=== PATIENT | male | born 1970 | race Caucasian/White ===

== ENCOUNTER 2016-06-16 07:13 | Day surgery (SDC) | payer BC ==
[2016-06-13 09:16] VITALS: BMI 28.4
[~2016-06-16 07:13] MED LIST: BUPIVACAINE HCL/PF 0.5% (5MG/ML) 10 ML VIAL IJ ONE; LIDOCAINE HCL 1%, 10 MG/ML (20ML VIAL) IJ ONE
[2016-06-16] MEDS ORDERED: ceFAZolin SODIUM 1 GM VIAL IVPB ONE (08:48)
[2016-06-16] MEDS ORDERED: ONDANSETRON 4 MG/2 ML VIAL IVPUSH PRN (09:09)
[2016-06-16] MEDS ORDERED: oxyCODONE HCL 5 MG TABLET PO PRN (09:09)
[2016-06-16] MEDS ORDERED: LACTATED RINGERS SOLUTION 1,000 ML IV SCH (09:15)
[2016-06-16] MEDS ORDERED: LIDOCAINE HCL 1%, 10 MG/ML (20ML VIAL) IJ ONE (10:10)
[2016-06-16] MEDS ORDERED: BUPIVACAINE HCL/PF 0.5% (5MG/ML) 10 ML VIAL IJ ONE (10:10)
[2016-06-16] MEDS ORDERED: BENZOIN/ALOE VERA/STORAX/TOLU 58 ML BOTTLE ONE (10:18)
--- NOTE | 2016-06-16 10:37 | OP ---
Operative Note - Note: Operative Date: 06/16/16 Pre-Operative Diagnosis: Left groin mass Operation: Excision of left groin mass Findings: Left groin mass Post-Operative Diagnosis: Same as Pre-op Surgeon: Philip Cornejo katie) Content Development Specialist: Agapito Garcia Anesthesia: Local, MAC Specimens Removed: Left groin mass Estimated Blood Loss (mls): 10 Operative Report Dictated: Yes
[2016-06-16 11:31] VITALS: BP 112/61; PULSE 73; TEMP 97.7
--- NOTE | 2016-06-16 12:39 | OP ---
DATE OF OPERATION: 06/16/2016 SURGEON: Fabián Cornejo MD CO-SURGEON: Agapito Garcia DO DOORKEEPER: KARUNA Phipps PREOPERATIVE DIAGNOSIS: Left groin mass. POSTOPERATIVE DIAGNOSIS: Left groin mass. PROCEDURE: Excision of left groin mass. SPECIMEN: Left groin mass. ESTIMATED BLOOD LOSS: 10 mL. DRAINS: None. ANESTHESIA: MAC/local. REASON FOR PROCEDURE: This is a 46-year-old gentleman who presented to the office for evaluation of a left groin mass. It had caused him some discomfort, and it had increased in size. Because of this, he was consented for an excision of left groin mass. The risks and benefits of the procedure were explained. These included bleeding, infection, recurrence, injury to surrounding structures including vessel injury, nerve injury, delayed wound healing, which in his case would be increased because of history of smoking and diabetes, UT, DVT, PE. He understood and signed for consent. DESCRIPTION OF PROCEDURE: The patient was placed on the operating room table. He underwent MAC by Anesthesia. The left groin was prepped and draped in the usual sterile fashion. A time-out was performed. A vertical incision was made over the area of the left groin mass. The area was dissected down to the level of the mass. The mass was fully dissected and excised. This was done along with Dr. Garcia. No evidence of vascular involvement was noted. The mass was sent off the field as specimen. Copious irrigation and suction was performed until clear hemostasis was achieved with electrocautery and Surgicel dressing, which was removed at the end. The deep tissues were closed using 2-0 Vicryl suture as well as 3-0 Vicryl suture. The skin was closed using 4-0 Biosyn suture. Sterile dressings were applied. The patient tolerated the procedure well and was transferred to the recovery room in stable condition. FABIÁN CORNEJO M.D. ELLE/[id number] MTDD
--- NOTE | 2016-06-17 12:59 | PATH ---
Surgical Pathology Report Patient Name: KELY CISSE [facility]. Rec. #: [id number] /Age/Gender: 1970 (Age: 46) / M Account: [id number] Location: [facility] Taken: 06/16/2016 Received: 06/16/2016 Reported: 06/17/2016 Physicians: Philip Cornejo M.D. Specimen(s) Received MASS LEFT GROIN Clinical History Left groin mass Final Diagnosis SOFT TISSUE, LEFT GROIN, EXCISION: INFLAMED GRANULATION TISSUE WITH FOREIGN BODY REACTION TO KERATINOUS MATERIAL CONSISTENT WITH RUPTURED EPIDERMAL INCLUSION CYST (KERATINOUS CYST). FAT NECROSIS AND FIBROSIS OF SURROUNDING ADIPOSE TISSUE PRESENT. NO MALIGNANT FEATURES ARE IDENTIFIED. Electronically Signed Norbert Nunez M.D. Gross Description Received in formalin labeled "mass left groin," are 2 swenson-yellow, irregular, unoriented portions of soft tissue measuring 2.0 x 2.0 x 0.5 cm and 5.0 x 2.3 x 0.9 cm. Sectioning reveals red yellow, smooth parenchyma with an ill-defined, firm focus in the larger portion of tissue. The specimen is entirely submitted in 4 cassettes as follows: 1-smaller portion of tissue; 2-4-larger portion of tissue with the firm focus in cassettes 2-3. /06/16/201606/16/2016
== END 2016-06-16 11:34 | disposition home or self-care (01) ==
LOC: JASU-SURG 07:13
PROVIDERS: ATTEND Surgery
PROC: 0JBC0ZZ Excision of Pelvic Region Subcutaneous Tissue and Fascia, Open Approach (ICD-10-PCS; principal; 2016-06-16 09:30)
DX: D21.5 Benign neoplasm of connective and other soft tissue of pelvis (principal)
CPT/HCPCS: 88304-TC; 94760

== ENCOUNTER 2016-10-12 23:59 | Inpatient (IN) | payer BC ==
[2016-10-13] MEDS ORDERED: SODIUM CHLORIDE 1,000 ML IV SCH
--- NOTE | 2016-10-13 00:02 | PDOC ---
History of Present Illness - General Stated Complaint: CHEST PAIN Time Seen by Provider: 10/13/16 00:02 History Source: Patient, Family () - History of Present Illness Initial Comments: 10/13/16 00:24 Patient is a 46 yo male with hx of tia presenting with CP and facial droop for 10 minutes - Negative CT PCP Anne Past History - Past Medical History Allergies/Adverse Reactions: Allergies Allergy/AdvReac Type Severity Reaction Status Date / Time No Known Allergies Allergy Verified 09/08/12 22:52 Home Medications: Ambulatory Orders Ascorbate Calcium [Vitamin C] 1,000 mg PO DAILY 06/13/16 Aspirin [ASA -] 81 mg PO DAILY 06/13/16 Canagliflozin [Invokana] 300 mg PO DAILY 06/13/16 Docusate Sodium [Colace -] 100 mg PO TID #90 capsule 06/16/16 Oxycodone HCl/Acetaminophen [Percocet 5-325 mg Tablet] 1 - 2 tab PO Q6H #28 tab MDD 4 06/16/16 Amox-Tr/K Cl [Augmentin - 875Mg Tablet] 1 tab PO BID #20 tablet 06/25/16 Anemia: No Asthma: No Cancer: No Cardiac Disorders: No CVA: No COPD: No CHF: No Dementia: No Diabetes: Yes (NIDDM) GI Disorders: No Disorders: No HTN: No Hypercholesterolemia: No Liver Disease: No Seizures: No Thyroid Disease: No - Surgical History Cholecystectomy: Yes - Psycho/Social/Smoking Cessation Hx Anxiety: No Suicidal Ideation: No Smoking Status: Yes Smoking History: Current every day smoker Have you smoked in the past 12 months: Yes Number of Cigarettes Smoked Daily: 10 'Breaking Loose' booklet given: 06/13/16 Hx Alcohol Use: No Drug/Substance Use Hx: No Substance Use Type: None Hx Substance Use Treatment: No ED Treatment Course - LABORATORY CBC & Chemistry Diagram: 10/13/16 00:26 10/13/16 00:26 Medical Decision Making - Medical Decision Making 10/13/16 01:08 46 yo male with chest pain, right facial droop, Ddx includes ACS, CVA, TIA Plan Code Barcenas CT [facility] Consider TPA Consult neuro Cardiac CARLIN 10/13/16 00:[address] Lepe (neuro) Not appropriate candidate for TPA d/t this not being a clear CVA - fluxuating exam findings, - no consistent focal neuro deficated Requested the following - admission - MRI - Echo - He will see the patient in the morning 10/13/16 01:11 CBC WBC 9.5 K/mm3 (4.0-10.0) 10/13/16 00:26 RBC 6.13 M/mm3 (4.00-5.60) H 10/13/16 00:26 Hgb 18.1 GM/dL (11.7-16.9) H 10/13/16 00:26 Hct 54.2 % (35.4-49) H 10/13/16 00:26 MCV 88.3 fl (80-96) 10/13/16 00:26 MCH 29.5 pg (25.7-33.7) 10/13/16 00:26 MCHC 33.4 g/dl (32.0-35.9) 10/13/16 00:26 RDW 13.2 % (11.9-15.9) 10/13/16 00:26 Plt Count 207 K/MM3 (134-434) 10/13/16 00:26 MPV 9.2 fl (7.5-11.1) 10/13/16 00:26 Neutrophils % 60.4 % (42.8-82.8) 10/13/16 00:26 Lymphocytes % 29.0 % (8-40) 10/13/16 00:26 Monocytes % 7.4 % (3.8-10.2) 10/13/16 00:26 Eosinophils % 2.2 % (0-4.5) D 10/13/16 00:26 Basophils % 1.0 % (0-2.0) 10/13/16 00:26 Elevated H/H, baseline, risk factor CMP Sodium 139 mmol/L (136-145) 10/13/16 00:26 Potassium 3.9 mmol/L (3.5-5.1) 10/13/16 00:26 Chloride 103 mmol/L (98-107) 10/13/16 00:26 Carbon Dioxide 27 mmol/L (21-32) 10/13/16 00:26 Anion Gap 9 (8-16) 10/13/16 00:26 BUN 13 mg/dL (7-18) D 10/13/16 00:26 Creatinine 0.7 mg/dL (0.7-1.3) D 10/13/16 00:26 Creat Clearance w eGFR > 60 (>60) 10/13/16 00:26 Random Glucose 203 mg/dL (74-106) H D 10/13/16 00:26 Calcium 8.9 mg/dL (8.5-10.1) 10/13/16 00:26 Total Bilirubin 0.4 mg/dL (0.2-1.0) 10/13/16 00:26 AST 18 U/L (15-37) D 10/13/16 00:26 ALT 23 U/L (12-78) 10/13/16 00:26 Alkaline Phosphatase 69 U/L (45-117) 10/13/16 00:26 Creatine Kinase 96 IU/L (39-308) 10/13/16 00:26 Troponin I < 0.02 ng/ml (0.00-0.05) 10/13/16 00:26 Total Protein 6.7 g/dl (6.4-8.2) 10/13/16 00:26 Albumin 4.1 g/dl (3.4-5.0) 10/13/16 00:26 Triglycerides 379 mg/dL (35-160) H D 10/13/16 00:26 Cholesterol 226 mg/dL (50-200) H 10/13/16 00:26 Elevated TG, Cholesterol, Risk factors 10/13/16 01:13 10/13/16 01:14 10/13/16 02:00 Patient threatening to leave AMA because he cannot have a private room. Talked him into staying Does not want Malkani. Told patient he would have to discuss that on the floor because Katieni it the neurologist head neck surgeon. 10/13/16 03:21 Patient continues to be difficult, threatening to leave AMA, removing leads, getting dressed, arguing with every health patient care representative, c/o HOGAN and wanting to get out of the ED because the sound of the monitors are aggravating his HOGAN. *DC/Admit/Observation/Transfer Diagnosis at time of Disposition: Chest pain, Facial droop - Discharge Dispostion Admit: Yes - Attestations Physician Attestion: 10/13/16 01:21 I, Dr. Yonas Charles, attest that this document has been prepared under my direction and personally reviewed by me in its entirety. I further attest, that it accurately reflects all work, treatment, procedures and medical decision -making performed by me.
[2016-10-13 00:21] VITALS: BMI 30.9
--- NOTE | 2016-10-13 00:24 | PDOC ---
Attending Attestation - Resident Resident Name: Yonas Charles - HPI HPI: 10/13/16 00:20 Pt came with facial droop that began 15-20 min prior to arrival. Family drove him to the ER, as he was complaining of chest pain and stated that he was having difficulty feeling his legs biaterally. Pt is anxious and not following commands. He is not opening his eyes, or closing his eyes, he is not raiising his brows, or lifting his leg or his arms or following any commands. Pt has normal reflexes throughout. He jerks both legs back when I do babinski testing, and his babinskis are both downward going. Pt is able to pull his arms away while IVs are being started. He has a visible left facial droop. I cannot test forced eye opening, as he is not closing eyes tightly. He will not allow romberg testing and he will not follow finger to nose testing. Pt was immediately rushed to CT scanner when he arrived in the ER and CT head appears normal. Pt calms dpwn when he hears this and he begins to comply with enuro testing. - Physicial Exam PE: 10/13/16 01:49 Agree with resident's exam. Pt has downgoing Babinskis bilaterally. - Medical Decision Making 10/13/16 06:16 Case d/w Dr. Lepe neurology who tells us that pt is not a candidate for tPA, as he has a variable neuro exam, and neuro exam is improving. Pt's PMD Anne is aware of the admission to telemetry. Pt has Chest pain and CVA/TIA.
[2016-10-13] MEDS ORDERED: ACETAMINOPHEN 325 MG TABLET (FP) ONE ×2 (00:30→03:28)
[2016-10-13] MEDS ORDERED: ACETAMINOPHEN 325 MG TABLET (FP) PO ONE (00:31)
[2016-10-13] MEDS ORDERED: ACETAMINOPHEN INJECTION 100 ML IVPB ONE ×2 (00:34→00:44)
[2016-10-13 00:37] LABS: EOSINOPHIL 2.2 % (0-4.5); MCH 29.5 pg (25.7-33.7); MCHC 33.4 g/dl (32.0-35.9); MEAN CELL VOLUME 88.3 fl (80-96); MEAN PLT VOLUME 9.2 fl (7.5-11.1); NEUTROPHILS 60.4 % (42.8-82.8); PLATELET COUNT 207 K/MM3 (134-434); RDW 13.2 % (11.9-15.9); WHITE BLOOD COUNT 9.5 K/mm3 (4.0-10.0)
[2016-10-13] MEDS ORDERED: ACETAMINOPHEN 1000 MG/100 ML VIAL (NON FORMULARY) IVPB ONE (00:40)
--- NOTE | 2016-10-13 00:43 | PDOC ---
NIH Stroke Scale - Last Known Well Date/Time & Onset Date Last Known Well: 10/12/16 Time Last Known Well: 11:50 - Initial Evaluation Level of consciousness: Alert Ask patient the month and their age: Answers both correctly Ask patient to open & close eyes; make fist and let go: Obeys both correctly Best gaze (horizontal eye movement): Normal Visual field testing: No visual field loss Facial paresis (Show teeth/raise eyebrows/close eyes tight): Minor paralysis ( flattened nasolabial fold, asymmetry on smiling) (right facial droop, able to smile with effort, able to open/close both eyes, b/l tongue movement) Motor Function: Left Arm: Normal Motor Function: Right Arm: Normal (extends arm 90 (or 45) degrees for 10 seconds without drift Motor Function: Left Leg: Some effort against gravity Motor Function: Right Leg: Some effort against gravity Limb Ataxia: Present in one limb (Unable to assess LE, ataxia in left UE) Sensory(Use pinprick test arms,legs,trunk,face/side to side): Mild to moderate decrease in sensation (Face R>) Best language (Describe picture, name items, read sentences): No Aphasia Dysarthria (read several words): Normal articulation Extinction and Inattention: No abnormality - Total Score NIH Stroke Scale Score: 7
[2016-10-13 00:50] LABS: INR 0.99 (0.82-1.09); PROTHROMBIN TIME (PATIENT) 10.9 SEC (9.98-11.88)
[2016-10-13 01:01] LABS: ALBUMIN 4.1 g/dl (3.4-5.0); ANION GAP 9 (8-16); BILIRUBIN,TOTAL 0.4 mg/dL (0.2-1.0); CALCIUM 8.9 mg/dL (8.5-10.1); CHOLESTEROL 226 mg/dL (50-200); CO2 27 mmol/L (21-32); CREATININE 0.7 mg/dL (0.7-1.3); GLUCOSE,RANDOM 203 mg/dL (74-106); SGPT/ALT 23 U/L (12-78); TOT PROT 6.7 g/dl (6.4-8.2)
[2016-10-13 01:04] LABS: ALK PHOS 69 U/L (45-117); TROPONIN I < 0.02 ng/ml (0.00-0.05)
[2016-10-13 01:06] LABS: CPK 96 IU/L (39-308); SGOT/AST 18 U/L (15-37)
[2016-10-13 02:47] LABS: LDL CHOLESTEROL (ONLY SJRH) 143 mg/dL (5-100)
[2016-10-13 03:51] VITALS: BP 140/60; PULSE 90; TEMP 98.5
--- NOTE | 2016-10-13 03:59 | HOSP ---
Subjective - Review of Symptoms Events since last encounter: Pt adamantly refuses hospitalization and wants to leave against medical advice. I explained to pt that leaving AMA is dangerous and can lead to worsening of his condition, permanent disability, and even . I used lay terminology. I answered all questions. It is clear to me that he understands the risks and benefits of continuous hospital stay and leaving AMA. He has the capacity to make his own decisions. He agrees to come back to the hospital if his symptoms persist or worsen. Physical Examination Vital Signs: Vital Signs Temperature 98.5 F 10/13/16 01:05 Pulse Rate 90 10/13/16 01:05 Respiratory Rate 18 10/13/16 01:05 Blood Pressure 140/60 10/13/16 01:05 O2 Sat by Pulse Oximetry (%) 99 10/13/16 01:05 Hospitalist Encounter Assessment: Pt left AMA. Visit type - Emergency Visit Emergency Visit: Yes ED Registration Date: 10/13/16 Care time: The patient presented to the Emergency Department on the above date and was hospitalized for further evaluation of their emergent condition. - New Patient This patient is new to me today: Yes Date on this admission: 10/13/16 - Critical Care Critical Care patient: No
--- NOTE | 2016-10-13 19:01 | EKG ---
Test Reason : Blood Pressure : / mmHG Vent. Rate : 076 BPM Atrial Rate : 076 BPM P-R Int : 130 ms QRS Dur : 084 ms QT Int : 362 ms P-R-T Axes : 025 004 010 degrees QTc Int : 407 ms NORMAL SINUS RHYTHM NORMAL ECG WHEN COMPARED WITH ECG OF 19-NOV-2014 19:41, NO SIGNIFICANT CHANGE WAS FOUND Confirmed by NICA DAWKINS MD ([id number]) on 10/13/2016 7:01:00 PM Referred By: Confirmed By:NICA DAWKINS MD
== END 2016-10-13 03:55 | disposition left against medical advice (07) | DRG 93 ==
LOC: JER 23:59 → JERBED 10-13 01:21 → J4W 10-13 03:39
PROVIDERS: ADMIT Family Medicine; ATTEND Family Medicine
DX: R29.810 Facial weakness (principal); R07.9 Chest pain, unspecified; R29.707 NIHSS score 7; F17.210 Nicotine dependence, cigarettes, uncomplicated
CPT/HCPCS: 36415; 70450-TC; 71010-TC; 80053; 82465; 83718; 83721; 84478; 84484; 85025; 85610; 86850; 86900; 86901; 93005; 93010; 99285-25

== ENCOUNTER 2017-06-28 17:09 | Inpatient (IN) | payer BC ==
[2017-06-28] MEDS ORDERED: DIPHTH,PERTUSS(ACELL),TET 0.5 ML DISP.SYRIN IM ONE (17:24)
--- NOTE | 2017-06-28 17:34 | PDOC ---
History of Present Illness - General Stated Complaint: BITE WOUND - History of Present Illness Initial Comments: 06/28/17 17:22 47 yo M with no significant pmh who p/w RLE swelling and pain. Patient recently returns from [place] with acute RLE redness, following 8 day trip. Patient believes he sustained bug bite while sleeping this past (06-25-17). No fever/chills, N/V, fatigue, night sweats. Denies F/C, N/V, CP, cough, wheezing, SOB, abdominal pain, diarrhea, constipation, urinary complaints, weakness, lightheadedness, sensory changes. PMH: Denies h/o cellulitis. NKDA.Denies h/o DM.Started on Doxycyline 100 mg BID ( 06-25-17). Does not recall last tetanus. Denies h/o PE/DVT, malignancy, hormonal therapy. ROS: As noted above SH: Endorses tobacco use 1-2 cigarettes per day. Denies EtoH use, or IVDA. Past History - Past Medical History Allergies/Adverse Reactions: Allergies Allergy/AdvReac Type Severity Reaction Status Date / Time No Known Allergies Allergy Verified 06/28/17 17:28 Home Medications: Ambulatory Orders Amoxicillin/Potassium Clav [Augmentin 875-125 Tablet] 1 each PO BID #14 tablet 06/30/17 Bacitracin - [Bacitracin Topical Ointment -] 1 applic TP BID #1 tube 06/30/17 Anemia: No Asthma: No Cancer: No Cardiac Disorders: No CVA: No COPD: No CHF: No Dementia: No Diabetes: Yes (NIDDM) GI Disorders: No Disorders: No HTN: No Hypercholesterolemia: No Liver Disease: No Seizures: No Thyroid Disease: No - Surgical History Cholecystectomy: Yes - Suicide/Smoking/Psychosocial Hx Smoking Status: Yes Smoking History: Current every day smoker Have you smoked in the past 12 months: Yes Number of Cigarettes Smoked Daily: 10 'Breaking Loose' booklet given: 06/13/16 Hx Alcohol Use: No Drug/Substance Use Hx: No Substance Use Type: None Hx Substance Use Treatment: No Review of Systems - Review of Systems Comments:: 06/28/17 17:34 GENERAL/CONSTITUTIONAL: No fever or chills. No weakness. HEAD, EYES, EARS, NOSE AND THROAT: No change in vision. No ear pain or discharge. No sore throat. CARDIOVASCULAR: No chest pain or shortness of breath RESPIRATORY: No cough, wheezing, or hemoptysis. GASTROINTESTINAL: No nausea, vomiting, diarrhea or constipation. GENITOURINARY: No dysuria, frequency, or change in urination. MUSCULOSKELETAL: + RLE swelling. No joint or muscle swelling or pain. No neck or back pain. SKIN: No rash NEUROLOGIC: No headache, vertigo, loss of consciousness, or change in strength/ sensation. ENDOCRINE: No increased thirst. No abnormal weight change HEMATOLOGIC/LYMPHATIC: No anemia, easy bleeding, or history of blood clots. ALLERGIC/IMMUNOLOGIC: No hives or skin allergy. *Physical Exam - Physical Exam Comments: 06/28/17 17:35 GENERAL: Awake, alert, and fully oriented, in no acute distress HEAD: No signs of trauma, normocephalic, atraumatic EYES: PERRLA, EOMI, sclera anicteric, conjunctiva clear ENT: Hearing grossly normal, nares patent, oropharynx clear without exudates. Moist mucosa NECK: Normal ROM, supple, no lymphadenopathy, JVD, or masses LUNGS: No distress, speaks full sentences, clear to auscultation bilaterally HEART: Regular rate and rhythm, normal S1 and S2, no murmurs, rubs or gallops, peripheral pulses normal and equal bilaterally. EXTREMITIES : RLE: diffuse circumferential, poorly circumscribed swelling, blanching ertyhema, and ttp from right ankle extending to distal phalanges. Central punctum present on post tibia. Absent streaking, fluctuance, induration , discharge. Normal range of motion, no edema. No cyanosis. LLE: Medial ankle ertyhema. SKIN: Warm, Dry, normal turgor, no rashes or lesions noted ED Treatment Course - LABORATORY CBC & Chemistry Diagram: 06/29/17 06:47 06/29/17 06:47 Medical Decision Making - Medical Decision Making 06/28/17 17:39 47 yo M with no significant pmh who p/w RLE warmth, erythema, and edema. VSS, A& OX3. Patient with RLE cellulitis . Refractory to outpt. doxycycline. 0/4 SIRS criteria. Absent evidence of end organ dysfunction, deep tissue infection. Low risk Weils criteria DVT ED Course: CBC,CMP, Blood culture RLE U/S Attempted call to Dr. French [phone] 06/28/17 17:[address] French start patient on Vanc and Zosyn. He will come see patient tommorrow. 06/28/17 17:[address] Bennett. Patient accepted to medicine service. 06/28/17 18:25 WBC: 12.0 Glu: 163 *DC/Admit/Observation/Transfer Diagnosis at time of Disposition: Cellulitis of right lower extremity, Insect bite (nonvenomous), right ankle, initial encounter - Discharge Dispostion Disposition: HOME Condition at time of disposition: Stable - Prescriptions - Referrals - Patient Instructions - Post Discharge Activity
[2017-06-28 17:52] LABS: BASO % 0.8 % (0-2.0); EOS % 2.1 % (0-4.5); HEMATOCRIT 50.5 % (35.4-49); HEMOGLOBIN 17.8 GM/dL (11.7-16.9); LYMPH % 13.3 % (8-40); MCH 32.3 pg (25.7-33.7); MCHC 35.2 g/dl (32.0-35.9); MEAN CELL VOLUME 91.7 fl (80-96); MEAN PLT VOLUME 8.7 fl (7.5-11.1); MONO % 7.1 % (3.8-10.2); NEUT % 76.7 % (42.8-82.8); PLATELET COUNT 201 K/MM3 (134-434); RBC 5.51 M/mm3 (4.00-5.60); RDW 13.5 % (11.9-15.9)
--- NOTE | 2017-06-28 18:04 | PDOC ---
Attending Attestation - Resident Resident Name: De Crouch - ED Attending Attestation I have performed the following: I have examined & evaluated the patient, The case was reviewed & discussed with the resident, I agree w/resident's findings & plan, Exceptions are as noted - HPI HPI: 06/28/17 18:01 47 yo male was bit by an unknown insect while in [place]. He was awoken in his sleep by pain in his ankle . He did start doxycycline po antibiotics while in [place]. - Physicial Exam PE: 06/28/17 18:04 wnwd 47 yo male in no acute distress head ncat neck supple lungs cta b/l [id number] abd nontender extremities left ankle is erythematous,sl swollen, the left foot is moderately swollen. Pt unable to bear weight because of painful left foot neuro axox3,moving all extremities - Medical Decision Making 06/28/17 18:08 -pt failed po antibiotics and was given vanco and zosyn , ID specialist Dr French recommend admission
[2017-06-28 18:16] LABS: ALBUMIN 3.8 g/dl (3.4-5.0); ALK PHOS 74 U/L (45-117); ANION GAP 8 (8-16); BILIRUBIN,TOTAL 0.6 mg/dL (0.2-1.0); BLOOD UREA NITROGEN 10 mg/dL (7-18); CALCIUM 8.9 mg/dL (8.5-10.1); CHLORIDE 104 mmol/L (98-107); CO2 28 mmol/L (21-32); CREATININE 0.6 mg/dL (0.7-1.3); GLUCOSE,RANDOM 163 mg/dL (74-106); SGOT/AST 13 U/L (15-37); SGPT/ALT 15 U/L (12-78); SODIUM 140 mmol/L (136-145); TOT PROT 6.4 g/dl (6.4-8.2)
[2017-06-28] MEDS ORDERED: VANCOMYCIN 1,500 MG in DEXTROSE 5%-WATER - 250 ML IVPB ONE (18:54)
[2017-06-28] MEDS ORDERED: PIPERACILLIN/TAZOB 4.5 GM 4.5 GM in DEXTROSE 5%-WATER 100 ML IVPB ONE (18:54)
[2017-06-28] MEDS ORDERED: DOCUSATE SODIUM 100 MG CAPSULE (FP) PO PRN (19:47)
[2017-06-28] MEDS ORDERED: morphine SULFATE 4 MG/ML VIAL IVPUSH PRN (19:47)
[2017-06-28] MEDS ORDERED: PIPERACILLIN/TAZOBACTAM 4.5 GM VIAL IVPB ONE (20:04)
[2017-06-28] MEDS ORDERED: DEXTROSE 5%-WATER 100 ML IVPB ONE (20:04)
--- NOTE | 2017-06-28 20:34 | HP ---
CHIEF COMPLAINT: Swelling, Pain to R- Lower Leg PCP: Dr. Rodríguez HISTORY OF PRESENT ILLNESS: This is a 47 y/o man with a PMH: NIDDM (no meds, diet controlled). Who presents to the ED with swelling, redness and pain to the RLE x 3 days. Patient reports being out of the country in [place], [place] returning last night. Patient reports feeling a scratch to the posterior aspect of his right leg, then on Thursday morning he noted a bump, redness which he attributes to a possible bug bite. Later on in the day the swelling increased, he reports being started on Doxycycline Thursday. The patient reports the pain, swelling and redness has worsened. Patient reports having numbness to his right toes. Patient denies fever, chills, cough, SOB, CP, palpitations, AP, N/V/D, constipation, dysuria. Last TD unknown ER course was notable for: (1) WBC 12.3 (2) Duplex RLE- neg DVT (3) Recent Travel: [place], [place] PAST MEDICAL HISTORY: NIID PAST SURGICAL HISTORY: Social History: Smoking: Former Alcohol: Denies Drugs: denies Family History: Non- Contributory Allergies No Known Allergies Allergy (Verified 06/28/17 17:28) HOME MEDICATIONS: Home Medications Medication Instructions Recorded NK [No Known Home Medication] 06/28/17 REVIEW OF SYSTEMS CONSTITUTIONAL: Absent: fever, chills, diaphoresis, generalized weakness, malaise, loss of appetite, weight change HEENT: Absent: rhinorrhea, nasal congestion, throat pain, throat swelling, difficulty swallowing, mouth swelling, ear pain, eye pain, visual changes CARDIOVASCULAR: peripheral edema Absent: chest pain, syncope, palpitations, irregular heart rate, lightheadedness RESPIRATORY: Absent: cough, shortness of breath, dyspnea with exertion, orthopnea, wheezing, stridor, hemoptysis GASTROINTESTINAL: Absent: abdominal pain, abdominal distension, nausea, vomiting, diarrhea, constipation, melena, hematochezia GENITOURINARY: Absent: dysuria, frequency, urgency, hesitancy, hematuria, flank pain, genital pain MUSCULOSKELETAL: Absent: myalgia, arthralgia, joint swelling, back pain, neck pain SKIN: Pustules, insect bites to lower extremities Absent: rash, itching, pallor HEMATOLOGIC/IMMUNOLOGIC: Absent: easy bleeding, easy bruising, lymphadenopathy, frequent infections ENDOCRINE: Absent: unexplained weight gain, unexplained weight loss, heat intolerance, cold intolerance NEUROLOGIC: Absent: headache, focal weakness or paresthesias, dizziness, unsteady gait, seizure, mental status changes, bladder or bowel incontinence PSYCHIATRIC: Absent: anxiety, depression, suicidal or homicidal ideation, hallucinations. PHYSICAL EXAMINATION Vital Signs - 24 hr 06/28/17 06/28/17 06/28/17 17:28 19:47 19:55 Temperature 97.8 F 97.9 F Pulse Rate 92 H 78 Respiratory 18 20 20 Rate Blood Pressure 127/75 119/62 O2 Sat by Pulse 98 98 Oximetry (%) GENERAL: Awake, alert, and fully oriented, in no acute distress. HEAD: Normal with no signs of trauma. EYES: Pupils equal, round and reactive to light, extraocular movements intact, sclera anicteric, conjunctiva clear. No lid lag. EARS, NOSE, THROAT: Ears normal, nares patent, oropharynx clear without exudates. Moist mucous membranes. NECK: Normal range of motion, supple without lymphadenopathy, JVD, or masses. LUNGS: Breath sounds equal, clear to auscultation bilaterally. No wheezes, and no crackles. No accessory muscle use. HEART: Regular rate and rhythm, normal S1 and S2 without murmur, rub or gallop. ABDOMEN: Soft, nontender, not distended, normoactive bowel sounds, no guarding, no rebound, no masses. No hepatomegaly or splenomegaly. MUSCULOSKELETAL: Normal range of motion at all joints. No bony deformities or tenderness. No CVA tenderness. UPPER EXTREMITIES: 2+ pulses, warm, well-perfused. No cyanosis. No clubbing. No peripheral edema. LOWER EXTREMITIES: 2+ pulses, warm, well-perfused. No calf tenderness. +1 R>L pitting peripheral edema. NEUROLOGICAL: Cranial nerves II-XII intact. Normal speech. Gait not observed. PSYCHIATRIC: Cooperative. Good eye contact. Appropriate mood and affect. SKIN: Warm, dry, normal turgor, normal capillary refill. +Erythema with tracking from right foot to mid calf, multiple pustules, insect bites to B/L lower extremites noted Laboratory Results - last 24 hr 06/28/17 06/28/17 17:40 17:40 WBC 12.0 H RBC 5.51 Hgb 17.8 H Hct 50.5 H MCV 91.7 MCH 32.3 MCHC 35.2 RDW 13.5 Plt Count 201 MPV 8.7 Neutrophils % 76.7 D Lymphocytes % 13.3 D Monocytes % 7.1 Eosinophils % 2.1 Basophils % 0.8 Sodium 140 Potassium 4.0 Chloride 104 Carbon Dioxide 28 Anion Gap 8 BUN 10 D Creatinine 0.6 L Creat Clearance w eGFR > 60 Random Glucose 163 H Calcium 8.9 Total Bilirubin 0.6 D AST 13 L D ALT 15 D Alkaline Phosphatase 74 Total Protein 6.4 Albumin 3.8 ASSESSMENT/PLAN: This is a 47 man with a H NIDDM. Admitted for R- Lower Leg Cellulitis Secondary to Insect Bites, Failed Outpatient Therapy. Problem List - Problem (1) Sepsis Assessment/Plan: - Likely secondary to insect bite/sting - qSOFA 0 - SIRS Criteria Met II- WBC 12,000, P 92 - Blood Cultures-pending - Lactic Acid- pending - Appreciate Id consult - Vancomycin, Zosyn started in ED - Will continue Vancomycin and Zosyn per ID - Elevate extremity - Neurovascular checks - Monitor CBC - Monitor vitals Code(s): A41.9 - SEPSIS, UNSPECIFIED ORGANISM (2) Cellulitis of lower extremity Assessment/Plan: - Likely secondary to insect bite vs Failed Outpatient Therapy vs r/o DVT - Started on Empiric ABX in ED- Vancomycin, Zosyn - ID Consulted and aware, per ED resident - Wells Score 2 - Duplex RLE- neg DVT - Elevate extremity - Monitor CBC - Monitor Vitals Code(s): L03.119 - CELLULITIS OF UNSPECIFIED PART OF LIMB (3) Failure of outpatient treatment Assessment/Plan: - See above Code(s): Z78.9 - OTHER SPECIFIED HEALTH STATUS (4) Hyperglycemia due to type 2 diabetes mellitus Assessment/Plan: - Likely secondary to Infection vs Inflammatory changes - Patient is on no current meds, is diet controlled, he reports his last HgbA1c - 6.0, glucose 87 - BGMs - HgbA1c in am - Consider ISS if needed - Monitor renal function Code(s): E11.65 - TYPE 2 DIABETES MELLITUS WITH HYPERGLYCEMIA (5) DVT prophylaxis Assessment/Plan: - OOB - SCD to Left leg only - Heparin SQ Code(s): [id number] - Visit type - Emergency Visit Emergency Visit: Yes ED Registration Date: 06/28/17 Care time: The patient presented to the Emergency Department on the above date and was hospitalized for further evaluation of their emergent condition. - New Patient This patient is new to me today: Yes Date on this admission: 06/28/17 - Critical Care Critical Care patient: No Hospitalist Screening - Colonoscopy Questionnaire Colonoscopy Questionnaire: Colonoscopy Questionnaire - Patient: 50 - 75 years old and never had a screening colonoscopy: No History of colon or rectal polyps, or CA: No History of IBD, Crohn's disease or UC: No History of abdominal radiation therapy as a child: No - Relative: 1 with colon or rectal CA, or polyps at age 60 or younger: No Colon or rectal CA diagnosed at age 45 or younger: No Multiple relatives with colon or rectal CA: No - Outcome: Screening Result: Negative Screen
[2017-06-28] MEDS: HEPARIN NA (PORCINE) 5,000 UNITS/ML 1ML VIAL SQ SCH (21:16)
[2017-06-28] MEDS ORDERED: VANCOMYCIN 1,500 MG in DEXTROSE 5%-WATER - 500 ML IVPB ONE (21:30)
[2017-06-28] MEDS ORDERED: ACETAMINOPHEN 325 MG TABLET (FP) PO PRN (21:45)
[2017-06-29] MEDS ORDERED: DEXTROSE 5%-WATER 100 ML IVPB ONE (04:58)
[2017-06-29] MEDS ORDERED: PIPERACILLIN/TAZOBACTAM 4.5 GM VIAL IVPB ONE (04:58)
[2017-06-29] MEDS ORDERED: PIPERACILLIN/TAZOB 4.5 GM 4.5 GM in DEXTROSE 5%-WATER 100 ML IVPB ONE (05:00)
[2017-06-29 07:04] LABS: BASO % 0.7 % (0-2.0); EOS % 2.1 % (0-4.5); HEMATOCRIT 51.2 % (35.4-49); HEMOGLOBIN 17.7 GM/dL (11.7-16.9); LYMPH % 14.5 % (8-40); MCH 31.8 pg (25.7-33.7); MCHC 34.5 g/dl (32.0-35.9); MEAN CELL VOLUME 92.2 fl (80-96); MEAN PLT VOLUME 8.9 fl (7.5-11.1); MONO % 8.7 % (3.8-10.2); PLATELET COUNT 193 K/MM3 (134-434); RBC 5.55 M/mm3 (4.00-5.60); RDW 13.7 % (11.9-15.9); WHITE BLOOD COUNT 8.8 K/mm3 (4.0-10.0)
[2017-06-29 07:35] LABS: ANION GAP 5 (8-16); BLOOD UREA NITROGEN 10 mg/dL (7-18); CALCIUM 8.4 mg/dL (8.5-10.1); CHLORIDE 108 mmol/L (98-107); CO2 28 mmol/L (21-32); CREATININE 0.6 mg/dL (0.7-1.3); GLUCOSE,RANDOM 163 mg/dL (74-106); POTASSIUM 4.2 mmol/L (3.5-5.1); SODIUM 141 mmol/L (136-145)
[2017-06-29] MEDS: HEPARIN NA (PORCINE) 5,000 UNITS/ML 1ML VIAL SQ SCH ×2 (09:35→21:16)
[2017-06-29 11:02] LABS: CHOLESTEROL 154 mg/dL (50-200); HDL CHOLESTEROL 33 mg/dL (40-60); TRIGLYCERIDES 100 mg/dL (35-160)
--- NOTE | 2017-06-29 11:28 | CON.ID ---
Consult Consult Specialty:: infectious diseases Reason for Consultation:: bite and cellulittis of the rt leg - History of Present Illness Chief Complaint: pain and swelling of the rt leg History of Present Illness: 47 y/o man with a PMH: NIDDM (no meds, diet controlled). Who presents to the ED with swelling, redness and pain to the RLE x 3 days. Patient reports being out of the country in [place], [place] returning last night. Patient reports feeling a scratch to the posterior aspect of his right leg, then on Thursday morning he noted a bump, redness which he attributes to a possible bug bite. Later on in the day the swelling increased, he reports being started on Doxycycline Thursday. The patient reports the pain, swelling and redness has worsened. Patient reports having numbness to his right toes. Patient denies fever, chills, cough, SOB, CP, palpitations, AP, N/V/D, constipation, dysuria. patient also mentions that the left leg posterior part is hurting him currently the swelling has decreased but patient has developed a small collection on the post part probably a fluid collection patient still has a lot of tenderness of the leg - History Source History Provided By: Patient Limitations to Obtaining History: No Limitations - Alcohol/Substance Use Hx Alcohol Use: No - Smoking History Smoking history: Smoker current status UNK Have you smoked in the past 12 months: Yes Aproximately how many cigarettes per day: 10 Home Medications - Allergies Allergies/Adverse Reactions: Allergies Allergy/AdvReac Type Severity Reaction Status Date / Time No Known Allergies Allergy Verified 06/28/17 17:28 - Home Medications Home Medications: Ambulatory Orders NK [No Known Home Medication] 06/28/17 Review of Systems - Review of Systems Constitutional: reports: No Symptoms Eyes: reports: No Symptoms HENT: reports: No Symptoms Neck: reports: No Symptoms Cardiovascular: reports: No Symptoms Respiratory: reports: No Symptoms Gastrointestinal: reports: No Symptoms Genitourinary: reports: No Symptoms Musculoskeletal: reports: Extremity Pain, Muscle Pain Integumentary: reports: Erythema, Wound, Other Neurological: reports: No Symptoms Endocrine: reports: No Symptoms Hematology/Lymphatic: reports: No Symptoms Psychiatric: reports: No Symptoms Physical Exam Vital Signs: Vital Signs Temperature 97.4 F L 06/29/17 09:57 Pulse Rate 70 06/29/17 09:57 Respiratory Rate 18 06/29/17 09:57 Blood Pressure 107/74 06/29/17 09:57 O2 Sat by Pulse Oximetry (%) 98 06/28/17 19:55 Constitutional: Yes: Well Nourished, Calm, Mild Distress Eyes: Yes: Conjunctiva Clear HENT: Yes: Atraumatic, Normocephalic Neck: Yes: Supple, Trachea Midline Cardiovascular: Yes: Regular Rate and Rhythm Respiratory: Yes: Regular, CTA Bilaterally Gastrointestinal: Yes: Normal Bowel Sounds, Soft Musculoskeletal: Yes: WNL Extremities: Yes: Erythema (rt leg), Other (fluid collection) Integumentary: Yes: Erythema, Other Neurological: Yes: Alert, Oriented Psychiatric: Yes: Alert, Oriented Labs: CBC, BMP 06/29/17 06:47 06/29/17 06:47 Imaging - Results Ultrasound: Report Reviewed, Image Reviewed Assessment/Plan This is a 47 man with a PMH NIDDM. Admitted for R- Lower Leg Cellulitis Secondary to Insect Bites, Failed Outpatient Therapy. Problem List - Problem (1) Sepsis Code(s): A41.9 - SEPSIS, UNSPECIFIED ORGANISM (2) Cellulitis of lower extremity Code(s): L03.119 - CELLULITIS OF UNSPECIFIED PART OF LIMB (3) Failure of outpatient treatment Code(s): Z78.9 - OTHER SPECIFIED HEALTH STATUS (4) Hyperglycemia due to type 2 diabetes mellitus Code(s): E11.65 - TYPE 2 DIABETES MELLITUS WITH HYPERGLYCEMIA i am worried that the patient might be also having mrsa plan i am going to continue lopez and collin will get a surgeon to see the patient and to drain the colelction d/e --who is going to see the patient rest continue current mgmt leukocytosis has resolved
[2017-06-29] MEDS ORDERED: PIPERACILLIN/TAZOBACTAM 3.375 GM VIAL IVPB ONE (13:01)
[2017-06-29] MEDS ORDERED: DEXTROSE 5%-WATER - 50 ML IVPB ONE (13:01)
[2017-06-29] MEDS: PIPERACILLIN/TAZOB 3.375 GM 3.375 GM in DEXTROSE 5%-WATER - 50 ML IVPB SCH ×2 (13:19→17:39)
[2017-06-29] MEDS: VANCOMYCIN 1,250 MG in DEXTROSE 5%-WATER - 250 ML IVPB SCH (14:44)
--- NOTE | 2017-06-29 16:09 | PN ---
Progress Note, Physician Chief Complaint: AWAKE ALERT CHART AND NOTES REVIEWED DENIES FEVER OR CHILLS - Current Medication List Current Medications: Active Medications Acetaminophen (Tylenol -) 650 mg PO Q6H PRN PRN Reason: FEVER Docusate Sodium (Colace -) 100 mg PO BID PRN PRN Reason: CONSTIPATION Heparin Sodium (Porcine) (Heparin -) 5,000 unit SQ BID [facility] Last Admin: 06/29/17 09:35 Dose: Not Given Vancomycin HCl 1,250 mg/ (Dextrose) 250 mls @ 250 mls/2 hr IVPB Q24H MARGARITA PRN Reason: Protocol Last Admin: 06/29/17 14:44 Dose: 250 mls/2 hr Piperacillin Sod/Tazobactam (Sod 3.375 gm/ Dextrose) 50 mls @ 100 mls/hr IVPB Q8H-IV MARGARITA PRN Reason: Protocol Last Admin: 06/29/17 13:19 Dose: 100 mls/hr Morphine Sulfate (Morphine Sulfate) 2 mg IVPUSH Q4H PRN PRN Reason: PAIN LEVEL 4 - 6 - Objective Vital Signs: Vital Signs Temperature 98.3 F 06/29/17 14:51 Pulse Rate 77 06/29/17 14:51 Respiratory Rate 18 06/29/17 14:51 Blood Pressure 107/63 06/29/17 14:51 O2 Sat by Pulse Oximetry (%) 98 06/28/17 19:55 Constitutional: Yes: No Distress Eyes: Yes: WNL HENT: Yes: WNL Neck: Yes: WNL Cardiovascular: Yes: WNL Respiratory: Yes: WNL Gastrointestinal: Yes: WNL Genitourinary: Yes: WNL Musculoskeletal: Yes: Joint Swelling Extremities: Yes: Erythema Edema: Yes Edema: LLE: 1+, RLE: 1+ Peripheral Pulses WNL: Yes Integumentary: Yes: Erythema Wound/Incision: Yes: Open to air, Unapproximated Neurological: Yes: WNL ...Motor Strength: WNL Psychiatric: Yes: WNL Labs: CBC, BMP 06/29/17 06:47 06/29/17 06:47 Problem List - Problems (1) Cellulitis of lower extremity Code(s): L03.119 - CELLULITIS OF UNSPECIFIED PART OF LIMB (2) DVT prophylaxis Code(s): [id number] - (3) Failure of outpatient treatment Code(s): Z78.9 - OTHER SPECIFIED HEALTH STATUS (4) Sepsis Code(s): A41.9 - SEPSIS, UNSPECIFIED ORGANISM Assessment/Plan IV ABX PER ID MAY NEED MRI LOWER EXTREMITY ESR NORMAL CRP ELEVATED SURGERY EVAL FOR I AND D DVT PROPHYLAXIS
--- NOTE | 2017-06-29 17:55 | CONSULT ---
Consult Consult Specialty:: General Surgery Referred by:: Dr. French Reason for Consultation:: foot cellulitis with possible abscess - History of Present Illness Chief Complaint: right foot/ankle pain, swelling, redness History of Present Illness: 47yo [place] M with h/o DM2 no longer on medication after weight loss and normal A1C last year, was in [place] for 8 days up until late last week and sustained multiple insect bites of unknown type while there. He felt a scratch at the back of his right ankle night, and had a large blister-like bump there when he got up, which then drained and got smaller. He developed redness over the whole ankle region and onto the foot with swelling, however, though he had started Doxycycline that . He was advised to come to hospital and was admitted through ER for IV antibiotics to medical service. ID started Vanco, Zosyn and response has been improvement in symptoms, though a small bump remains at the right Achilles with focal redness and tenderness. Surgery is consulted to evaluate for possible need for unroofing/I&D. - History Source History Provided By: Patient Limitations to Obtaining History: No Limitations - Past Medical History Endocrine: Yes: Diabetes Mellitus (stopped Invokana 1 yr ago because of normal A1C and weight loss) - Past Surgical History Past Surgical History: Yes: Cholecystectomy (laparoscopic) - Alcohol/Substance Use Hx Alcohol Use: Yes (rarely) History of Substance Use: reports: None - Smoking History Smoking history: Former smoker Have you smoked in the past 12 months: No If you are a former smoker, when did you quit?: 2017 - Social History ADL: Independent Occupation: hospital deputy administrator History of Recent Travel: Yes ([place] 8 days, returned last week) Home Medications - Allergies Allergies/Adverse Reactions: Allergies Allergy/AdvReac Type Severity Reaction Status Date / Time No Known Allergies Allergy Verified 06/28/17 17:28 - Home Medications Home Medications: Ambulatory Orders NK [No Known Home Medication] 06/28/17 Home Medications (free text): ASA 81mg daily last on Thursday. Vit C 1000mg daily Family Disease History - Family Disease History Family Disease History: Diabetes: Father (pancreatic at 90), Mother, CA: Father Review of Systems - Review of Systems Constitutional: denies: Chills, Fever Eyes: reports: Other (uses reading glasses). denies: Recent Change in Vision HENT: denies: Difficult Swallowing, Throat Pain Neck: denies: Swollen Glands, Tenderness Cardiovascular: denies: Chest Pain, Palpitations Respiratory: denies: Cough, SOB Gastrointestinal: denies: Abdominal Pain, Constipation, Diarrhea, Nausea, Vomiting Genitourinary: denies: Burning, Dysuria Musculoskeletal: denies: Back Pain, Joint Pain, Muscle Pain Integumentary: reports: Erythema (right ankle and foot, with hpi), Lesions ( multiple bug bites both ankles, had large blister/bump at right achilles tendon which drained previously) Neurological: reports: Dizziness (one episode while in [place]). denies: Headache Psychiatric: reports: Depression (situational - related to divorce). denies: Anxiety Physical Exam Vital Signs: Vital Signs Temperature 98.3 F 06/29/17 14:51 Pulse Rate 77 06/29/17 14:51 Respiratory Rate 18 06/29/17 14:51 Blood Pressure 107/63 06/29/17 14:51 O2 Sat by Pulse Oximetry (%) 98 06/28/17 19:55 Constitutional: Yes: Well Nourished, No Distress, Calm Eyes: Yes: Conjunctiva Clear, EOM Intact HENT: Yes: Atraumatic, Normocephalic Neck: Yes: Supple, Trachea Midline Cardiovascular: Yes: Regular Rate and Rhythm. No: Murmur Respiratory: Yes: Regular, CTA Bilaterally Gastrointestinal: Yes: Normal Bowel Sounds, Soft, Other (well-healed laparoscopic scars). No: Distention, Tenderness ...Rectal Exam: Yes: Deferred Renal/: No: CVA Tenderness - Left, CVA Tenderness - Right Musculoskeletal: Yes: Joint Swelling (mild right ankle). No: Joint Stiffness Extremities: Yes: Erythema (right ankle and foot, poorly demarcated, improved some per pt since yesterday and admission; small focal reddened spot at right Achilles tendon with central raised soft, tender necrotic lesion, grayish; no drainage expressible, full ROM of foot/ankle; edema improved per pt). No: Cool , Cyanosis Edema: Yes Edema: LLE: Trace (ankle), RLE: 1+ (foot/ankle) Peripheral Pulses WNL: Yes Integumentary: Yes: Erythema (see above), Other (multiple spots on bilateral ankles c/w possible bug bites). No: Jaundice, Rash Neurological: Yes: Alert, Oriented Psychiatric: Yes: Alert, Oriented Labs: CBC, BMP 06/29/17 06:47 06/29/17 06:47 CMP Sodium 141 mmol/L (136-145) 06/29/17 06:47 Potassium 4.2 mmol/L (3.5-5.1) 06/29/17 06:47 Chloride 108 mmol/L (98-107) H 06/29/17 06:47 Carbon Dioxide 28 mmol/L (21-32) 06/29/17 06:47 Anion Gap 5 (8-16) L 06/29/17 06:47 BUN 10 mg/dL (7-18) 06/29/17 06:47 Creatinine 0.6 mg/dL (0.7-1.3) L 06/29/17 06:47 Creat Clearance w eGFR > 60 (>60) 06/28/17 17:40 POC Glucometer 108 UNITS (80-120) 06/29/17 17:19 Random Glucose 163 mg/dL (74-106) H 06/29/17 06:47 Hemoglobin A1c % 5.7 % (4.8-6.0) 06/29/17 10:10 Lactic Acid 1.3 mmol/L (0.0-2.0) 06/29/17 10:00 Calcium 8.4 mg/dL (8.5-10.1) L 06/29/17 06:47 Total Bilirubin 0.6 mg/dL (0.2-1.0) D 06/28/17 17:40 AST 13 U/L (15-37) L D 06/28/17 17:40 ALT 15 U/L (12-78) D 06/28/17 17:40 Alkaline Phosphatase 74 U/L (45-117) 06/28/17 17:40 C-Reactive Protein 2.9 MG/DL (0.00-0.3) H 06/29/17 10:00 Total Protein 6.4 g/dl (6.4-8.2) 06/28/17 17:40 Albumin 3.8 g/dl (3.4-5.0) 06/28/17 17:40 Triglycerides 100 mg/dL (35-160) D 06/29/17 10:00 Cholesterol 154 mg/dL (50-200) D 06/29/17 10:00 Total LDL Cholesterol 115 mg/dL (5-100) H 06/29/17 10:00 HDL Cholesterol 33 mg/dL (40-60) L D 06/29/17 10:00 Problem List - Problems (1) Cellulitis of right lower extremity Assessment/Plan: right ankle/foot cellulitis with insect bite(s) and focal lesion at right Achilles tendon possible very small abscess vs spontaneously drained already improving on IV antibiotics per ID elevation over heart level will reassess tomorrow for need for unroofing under local anesthetic pain meds prn Code(s): L03.115 - CELLULITIS OF RIGHT LOWER LIMB (2) Insect bite (nonvenomous), right ankle, initial encounter Code(s): S90.561A - INSECT BITE (NONVENOMOUS), RIGHT ANKLE, INITIAL ENCOUNTER; W57.XXXA - BIT/STUNG BY NONVENOM INSECT & OTH NONVENOM ARTHROPODS, INIT (3) Right ankle pain Code(s): M25.571 - PAIN IN RIGHT ANKLE AND JOINTS OF RIGHT FOOT Qualifiers: Chronicity: acute Qualified Code(s): M25.571 - Pain in right ankle and joints of right foot
[2017-06-29] MEDS ORDERED: PIPERACILLIN/TAZOB 4.5 GM 4.5 GM in DEXTROSE 5%-WATER 100 ML IVPB SCH (18:00)
[2017-06-29] MEDS ORDERED: VANCOMYCIN 1,000 MG in DEXTROSE 5%-WATER - 250 ML IVPB SCH (22:00)
[2017-06-30] MEDS ORDERED: DEXTROSE 5%-WATER - 50 ML IVPB ONE ×2 (00:18→09:09)
[2017-06-30] MEDS ORDERED: PIPERACILLIN/TAZOBACTAM 3.375 GM VIAL IVPB ONE ×2 (00:18→09:09)
[2017-06-30] MEDS: PIPERACILLIN/TAZOB 3.375 GM 3.375 GM in DEXTROSE 5%-WATER - 50 ML IVPB SCH ×2 (02:00→09:20)
[2017-06-30 06:12] VITALS: TEMP 98.6
[2017-06-30] MEDS: HEPARIN NA (PORCINE) 5,000 UNITS/ML 1ML VIAL SQ SCH (09:20)
[2017-06-30 10:14] VITALS: BP 124/61; PULSE 73
[2017-06-30] MEDS ORDERED: BACITRACIN 0.9 GM PACKET TP SCH (10:30)
--- NOTE | 2017-06-30 10:38 | PN ---
Progress Note (short form) - Note Progress Note: Pt with right ankle and foot cellulitis with small lesion at right achilles tendon, presumed from bug bites Ambulating well, redness significantly resolved, pain improved, swelling back to normal. Tolerating diet, no fevers. Seen and examined in room. Vital Signs Period Temp Pulse Resp BP Sys/Kebede Pulse Ox Last 24 Hr 98.3 F-98.6 F 73-79 18-20 107-124/61-70 98 PE: A&O thin, comfortable ext with no sig edema including right foot and ankle, scattered small residual healing perez from bug bites right foot without erythema, trace residual patchy light pink over lateral right ankle only right posterior ankle/heel lesion - soft pink overlying patch gently removed with gauze revealing clean, red, granulating surface focal redness surrounding this <1cm diameter away, improving on abx locally tender only Microbiology 06/28/17 17:30 Blood Culture - Preliminary Blood - Peripheral Venous NO GROWTH OBTAINED AFTER 24 HOURS, INCUBATION TO CONTINUE FOR 4 DAYS. 06/28/17 17:30 Blood Culture - Preliminary Blood - Peripheral Venous NO GROWTH OBTAINED AFTER 24 HOURS, INCUBATION TO CONTINUE FOR 4 DAYS. A/P: right foot and ankle cellulitis with small resolving blister-like lesion at right achilles tendon clean wound cellulitis nearly completely resolved, no significant swelling remains will dress with bacitracin and band-aid bid and prn until healed antibiotics per ID - could change to po to complete course? no need for further surgical intervention Problem List - Problems (1) Cellulitis of right lower extremity Code(s): L03.115 - CELLULITIS OF RIGHT LOWER LIMB (2) Insect bite (nonvenomous), right ankle, initial encounter Code(s): S90.561A - INSECT BITE (NONVENOMOUS), RIGHT ANKLE, INITIAL ENCOUNTER; W57.XXXA - BIT/STUNG BY NONVENOM INSECT & OTH NONVENOM ARTHROPODS, INIT (3) Right ankle pain Code(s): M25.571 - PAIN IN RIGHT ANKLE AND JOINTS OF RIGHT FOOT Qualifiers: Chronicity: acute Qualified Code(s): M25.571 - Pain in right ankle and joints of right foot
[2017-06-30] MEDS ORDERED: BACITRACIN 15 GM TUBE TOPICAL OINTMENT TP SCH (10:45)
--- NOTE | 2017-06-30 10:55 | PN ---
Progress Note, Physician Chief Complaint: RLE cellulitis History of Present Illness: NAD IV abx Seen by ID and surgery no I&D needed wants to go home - Current Medication List Current Medications: Active Medications Acetaminophen (Tylenol -) 650 mg PO Q6H PRN PRN Reason: FEVER Bacitracin (Bacitracin -) 1 applic TP BID MARGARITA Docusate Sodium (Colace -) 100 mg PO BID PRN PRN Reason: CONSTIPATION Heparin Sodium (Porcine) (Heparin -) 5,000 unit SQ BID MARGARITA Last Admin: 06/30/17 09:20 Dose: Not Given Vancomycin HCl 1,250 mg/ (Dextrose) 250 mls @ 250 mls/2 hr IVPB Q24H MARGARITA PRN Reason: Protocol Last Admin: 06/29/17 14:44 Dose: 250 mls/2 hr Piperacillin Sod/Tazobactam (Sod 3.375 gm/ Dextrose) 50 mls @ 100 mls/hr IVPB Q8H-IV MARGARITA PRN Reason: Protocol Last Admin: 06/30/17 09:20 Dose: 100 mls/hr Morphine Sulfate (Morphine Sulfate) 2 mg IVPUSH Q4H PRN PRN Reason: PAIN LEVEL 4 - 6 - Objective Vital Signs: Vital Signs Temperature 98.6 F 06/30/17 06:11 Pulse Rate 73 06/30/17 10:00 Respiratory Rate 18 06/30/17 10:00 Blood Pressure 124/61 06/30/17 10:00 O2 Sat by Pulse Oximetry (%) 98 06/29/17 21:00 Constitutional: Yes: Well Nourished, No Distress, Calm Cardiovascular: Yes: Regular Rate and Rhythm Respiratory: Yes: Regular Musculoskeletal: Yes: WNL Extremities: Yes: WNL Edema: No Peripheral Pulses WNL: Yes Neurological: Yes: Alert, Oriented Psychiatric: Yes: Alert, Oriented Labs: CBC, BMP 06/29/17 06:47 06/29/17 06:47 Problem List - Problems (1) Cellulitis of right lower extremity Assessment/Plan: 03/20 to insect bite -seen by ID -Switch IV abx to PO -f/u with PCP outpatient Code(s): L03.115 - CELLULITIS OF RIGHT LOWER LIMB
--- NOTE | 2017-06-30 11:36 | PN ---
Progress Note, Physician History of Present Illness: patient yanni mena cellulitis nearly resolved - Current Medication List Current Medications: Active Medications Acetaminophen (Tylenol -) 650 mg PO Q6H PRN PRN Reason: FEVER Bacitracin (Bacitracin -) 1 applic TP BID MARGARITA Docusate Sodium (Colace -) 100 mg PO BID PRN PRN Reason: CONSTIPATION Heparin Sodium (Porcine) (Heparin -) 5,000 unit SQ BID [facility] Last Admin: 06/30/17 09:20 Dose: Not Given Vancomycin HCl 1,250 mg/ (Dextrose) 250 mls @ 250 mls/2 hr IVPB Q24H MARGARITA PRN Reason: Protocol Last Admin: 06/29/17 14:44 Dose: 250 mls/2 hr Piperacillin Sod/Tazobactam (Sod 3.375 gm/ Dextrose) 50 mls @ 100 mls/hr IVPB Q8H-IV MARGARITA PRN Reason: Protocol Last Admin: 06/30/17 09:20 Dose: 100 mls/hr Morphine Sulfate (Morphine Sulfate) 2 mg IVPUSH Q4H PRN PRN Reason: PAIN LEVEL 4 - 6 - Objective Vital Signs: Vital Signs Temperature 98.6 F 06/30/17 06:11 Pulse Rate 73 06/30/17 10:00 Respiratory Rate 18 06/30/17 10:00 Blood Pressure 124/61 06/30/17 10:00 O2 Sat by Pulse Oximetry (%) 98 06/29/17 21:00 Constitutional: Yes: No Distress, Calm Cardiovascular: Yes: Regular Rate and Rhythm Respiratory: Yes: Regular, CTA Bilaterally Gastrointestinal: Yes: Normal Bowel Sounds, Soft Musculoskeletal: Yes: WNL Extremities: Yes: WNL Wound/Incision: Yes: Dressing Dry and Intact Neurological: Yes: Alert, Oriented Labs: CBC, BMP 06/29/17 06:47 06/29/17 06:47 Assessment/Plan This is a 47 man with a PMH NIDDM. Admitted for R- Lower Leg Cellulitis Secondary to Insect Bites, Failed Outpatient Therapy. Problem List - Problem (1) Sepsis Code(s): A41.9 - SEPSIS, UNSPECIFIED ORGANISM (2) Cellulitis of lower extremity Code(s): L03.119 - CELLULITIS OF UNSPECIFIED PART OF LIMB (3) Failure of outpatient treatment Code(s): Z78.9 - OTHER SPECIFIED HEALTH STATUS (4) Hyperglycemia due to type 2 diabetes mellitus Code(s): E11.65 - TYPE 2 DIABETES MELLITUS WITH HYPERGLYCEMIA i am worried that the patient might be also having mrsa plan patient can be discharged on augmentin 875 mg po bid for 7 more days to follow up rest as per the team patient doing well
[2017-06-30] MEDS: VANCOMYCIN 1,250 MG in DEXTROSE 5%-WATER - 250 ML IVPB SCH (11:40)
== END 2017-06-30 12:58 | disposition home or self-care (01) | DRG 603 ==
LOC: JER 17:09 → JERBED 17:59 → J6S 19:33
PROVIDERS: ADMIT Internal Medicine; ATTEND Family Medicine
DX: L03.115 Cellulitis of right lower limb (principal); F17.210 Nicotine dependence, cigarettes, uncomplicated; E11.65 Type 2 diabetes mellitus with hyperglycemia; M25.571 Pain in right ankle and joints of right foot; S80.861A Insect bite (nonvenomous), right lower leg, initial encounter; W57.XXXA Bitten or stung by nonvenomous insect and other nonvenomous arthropods, initial encounter; Z78.9 Other specified health status
CPT/HCPCS: 36415; 80048; 80053; 80061; 82962; 83036; 83605; 83721; 85025; 85651; 86140; 87040; 90715; 93970-TC; 99284-25; G0480

== ENCOUNTER 2017-11-30 10:19 | Emergency (ER) | payer BC ==
[2017-11-30 10:33] VITALS: BP 114/75; PULSE 69; TEMP 98.1; BMI 23.2
--- NOTE | 2017-11-30 10:59 | PDOC ---
History of Present Illness - General Chief Complaint: Lightheaded Stated Complaint: Lightheaded Time Seen by Provider: 11/30/17 10:58 - History of Present Illness Initial Comments: 47yo M with PMH of GERD presenting with lightheadedness and chest pain. Patient reports this started a half hour prior to arrival, rated 4-5/10 lasting a couple seconds at a time. Also endorses dizziness, diaphoresis, and BLE numbness. He was sitting at the time and states he was in a stressful work meeting. Patient thinks his pain was related to gas which he has had before. Previous cardiac workup about 4-5 years ago which was normal. Currently endorsing no symptoms. Patient is a current everyday smoker. Brother had an VT three weeks ago in his late 50s or early 60s. No fever, chills, shortness of breath, or abdominal pain. Past History - Past Medical History Allergies/Adverse Reactions: Allergies Allergy/AdvReac Type Severity Reaction Status Date / Time No Known Allergies Allergy Verified 06/28/17 17:28 Home Medications: Ambulatory Orders Amoxicillin/Potassium Clav [Augmentin 875-125 Tablet] 1 each PO BID #14 tablet 06/30/17 Bacitracin - [Bacitracin Topical Ointment -] 1 applic TP BID #1 tube 06/30/17 Anemia: No Asthma: No Cancer: No Cardiac Disorders: No CVA: No COPD: No CHF: No Dementia: No Diabetes: Yes (NIDDM) GI Disorders: No Disorders: No HTN: No Hypercholesterolemia: No Liver Disease: No Seizures: No Thyroid Disease: No - Surgical History Cholecystectomy: Yes - Immunization History Immunization Up to Date: Yes - Suicide/Smoking/Psychosocial Hx Smoking Status: Yes Smoking History: Current some day smoker Have you smoked in the past 12 months: Yes Number of Cigarettes Smoked Daily: 10 If you are a former smoker, when did you quit?: 2017 Information on smoking cessation initiated: No 'Breaking Loose' booklet given: 06/13/16 Hx Alcohol Use: No Drug/Substance Use Hx: No Substance Use Type: None Hx Substance Use Treatment: No Review of Systems - Review of Systems Comments:: Constitutional: no fever, no chills, +diaphoresis Cardiovascular: +chest pain, no palpitations Respiratory: no cough, no shortness of breath Gastrointestinal: no abdominal pain, no nausea, no vomiting Genitourinary: no dysuria, no frequency Musculoskeletal: no myalgia, no arthralgia Neurologic: no headache, +lightheaded *Physical Exam - Vital Signs Last Vital Signs Temp Pulse Resp BP Pulse Ox 98.1 F 69 16 114/75 98 11/30/17 10:27 11/30/17 10:27 11/30/17 10:27 11/30/17 10:27 11/30/17 10:27 - Physical Exam Comments: General: Awake, alert, and fully oriented, in no acute distress Head: no signs of trauma Eyes: EOMI ENT: Moist mucus membranes Neck: Normal ROM, supple Lungs: Lungs clear, Normal breath sounds Cardio: Regular rhythm, S1 and S2 present Abdomen: Soft, nontender, nondistended Extremities: Normal range of motion, Distal pulses present SKIN: Warm, Dry, normal turgor Neurologic: Cranial nerves II through XII grossly intact. Normal speech Medical Decision Making - Medical Decision Making 47yo M with PMH of GERD presenting with lightheadedness and chest pain. -DDX includes but not limited to ACS, PE, MSK, GERD, Anxiety -Aspirin and Cardiac workup: EKG, Labs, CXR -EKG: rate 72, QTc 481, NSR -Patient adamantly declined further workup except for EKG. Though the benefits and risks were explained, patient voiced understanding and signed out against medical advice. 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 -Discussed case with mix crusher operator, Dr. Worthy, who said he will attempt to arrange follow-up with this patient. *DC/Admit/Observation/Transfer Diagnosis at time of Disposition: Chest pain - Discharge Dispostion Disposition: AGAINST MEDICAL ADVICE - Referrals Referrals: Felicita Rodríguez MD [Primary Care Provider] - - Patient Instructions - Post Discharge Activity
[2017-11-30] MEDS ORDERED: ASPIRIN 325 MG TABLET PO ONE (11:27)
[2017-11-30] MEDS ORDERED: ASPIRIN 325 MG TABLET ONE (11:55)
[2017-11-30] MEDS ORDERED: ASPIRIN 81 MG CHEWABLE TABLETS ONE (11:56)
--- NOTE | 2017-11-30 14:26 | EKG ---
Test Reason : Blood Pressure : / mmHG Vent. Rate : 072 BPM Atrial Rate : 072 BPM P-R Int : 124 ms QRS Dur : 084 ms QT Int : 376 ms P-R-T Axes : 045 016 035 degrees QTc Int : 411 ms NORMAL SINUS RHYTHM NORMAL ECG WHEN COMPARED WITH ECG OF 13-OCT-2016 00:14, NO SIGNIFICANT CHANGE WAS FOUND Confirmed by NICA DAWKINS MD ([id number]) on 11/30/2017 2:26:31 PM Referred By: Confirmed By:NICA DAWKINS MD
--- NOTE | 2017-11-30 17:49 | PDOC ---
Attending Attestation - Resident Resident Name: Chelsea Garibay - ED Attending Attestation I have performed the following: I have examined & evaluated the patient, The case was reviewed & discussed with the resident, I agree w/resident's findings & plan, Exceptions are as noted - HPI HPI: 11/30/17 17:44 47 yo h/o tobacco use ( quit two years ago) here today c/o intermittent chest pain. states earlier today had some left sided chest pain, no radiation, no sob. did get diaphoretic with the pain. pt states it was brief, and self resolved. no leg swelling. no h/ ope or dvt. had stress test [address] Lambert. no cough, no fever. no other complaints. 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 does have a brother who had an CA recenlty , in his 50's 11/30/17 17:46 - Physicial Exam PE: 11/30/17 17:47 awake alert lungs clear bilaterally heart rrr no mrg. abd soft nt nd. no pulsatile mass. ext wwp no edema. no calf tenderness. skin warm and dry. alert oreinted x 3. pulses symmetric. - Medical Decision Making 11/30/17 17:47 47 yo male with chest pain diaphoresis, h/o tobacco use and family h/o cad. here with chest pain. differentila pna, angina, gerd, pna, . recommend cbc lyts troponin ekg cxr. pt refusing all labs and blood work. ekg reviewed and unremarkable. offered to call his chief psychologist. pt would like to see a differenti chief psychologist. aware of risk and benefit. left against medical advice. told to return to ed for recurrent pain. or any concerns. refused asa. Heart Score/ECG Review #1 General ECG Interpretation: Sinus Rhythm, Normal Rate (72), Normal Intervals, No acute ischemic changes
== END 2017-11-30 12:20 | disposition left against medical advice (07) ==
LOC: JER 10:19
DX: R07.9 Chest pain, unspecified (principal); E11.9 Type 2 diabetes mellitus without complications; Z79.84 Long term (current) use of oral hypoglycemic drugs
CPT/HCPCS: 93005; 93010; 99282-25

== ENCOUNTER 2018-04-07 10:01 | Emergency (ER) | payer BC ==
[2018-04-07 10:08] VITALS: BP 129/74; PULSE 89; TEMP 97.9; BMI 24.3
--- NOTE | 2018-04-07 10:13 | PDOC ---
History of Present Illness <JovitachaseAruna - Last Filed: 04/07/18 13:25> - General History Source: Patient Exam Limitations: No Limitations <María Marucm - Last Filed: 04/07/18 13:37> - General Chief Complaint: Lightheaded Stated Complaint: DIZZINESS Time Seen by Provider: 04/07/18 10:13 - History of Present Illness Initial Comments: 04/07/18 11:50 The patient is a 47 year old male, employee of the hospital, with a significant past medical history of GERD and former diabetes and hypertension (diet controlled), who presents to the emergency department with multiple intermittent episodes of dizziness since taking a shower this morning. He states he woke up feeling well, showered, and developed room-spinning sensation with associated profuse sweating and bilateral lower extremity weakness. He states he lied down with his legs raised and symptoms improved. He reportedly had a couple of subsequent episodes of dizziness and sweating which came and went. However, he states that when he arrived to work and sat down to log into his computer, he developed the room spinning sensation, generalized weakness, diaphoresis, chills, and bilateral ear pressure sensation. He states he felt as if he was going to faint and called his son. He states his niece was in the office with him who witnessed the episodes. He reports experiencing these symptoms in the past, but states today is much worse. He denies exacerbating or alleviating factors of his symptoms. Secondarily, the patient states he went to bed with sinus congestion and a sore neck. He states he cracked and self-manipulated his neck prior to going to sleep last night. The patient denies chest pain, shortness of breath, headache. Denies syncope. Denies focal weakness or paresthesias or gait instability. The patient denies fever, nausea, vomit, diarrhea and constipation. The patient denies dysuria, frequency, urgency and hematuria. The patient has a history of leaving AMA prior to workup being completed. Allergies: NKDA Family Hx: non-contributory Past surgical history: cholecystectomy (30 yrs ago) Social history: denies toxic habits ROS GENERAL/CONSTITUTIONAL: (+) generalized lower body weakness. Chills, sweats. No fever. HEAD, EYES, EARS, NOSE AND THROAT: (+) bilateral ear pressure. No change in vision or hearing. No ear discharge. No sore throat or mouth pain. No difficulty swallowing. (+) Sinus congestion. CARDIOVASCULAR: No chest pain or palpitations, syncope or edema. RESPIRATORY: No SOB, cough, wheezing, or hemoptysis. GASTROINTESTINAL No nausea/vomiting. No diarrhea or constipation. No bloody stools. GENITOURINARY: No hematuria, dysuria, frequency, urgency or other changes. MUSCULOSKELETAL: No joint or muscle swelling or pain. No neck or back pain. SKIN: No rash or changes in skin color or lesions. NEUROLOGIC:(+) bilateral lower extremity weakness. Dizziness. No headache,loss of consciousness, or change in sensation. No gait instability. +Vertigo/ dizziness HEMATOLOGIC/LYMPHATIC: No anemia, easy bruising/bleeding, or history of blood clots. No swollen lymph nodes ALLERGIC/IMMUNOLOGIC: No allergies All other systems reviewed and negative, or as documented in HPI. PE: General: Well appearing, awake and alert, NAD. HEENT: NCAT, PERRL, EOMI, clear conjunctiva, anicteric, moist mucous membranes , clear oropharynx, no oral lesions. No Nystagmus. Bilateral T.Ms clear Neck: neck supple, FROM Resp: CTAB, normal and even respirations, no respiratory distress CVS: RRR, no murmurs, 2+ peripheral pulses throughout, no peripheral edema Abdomen: soft, NTND, no rebound or guarding. No CVAT. Back: nontender, normal inspection and ROM MSK: no edema, LECHUGA x4, ROM intact. No clubbing or cyanosis. normal bulk and tone. Extremities: no calf tenderness Neuro: Alert, oriented to person time and place. CN II-XII grossly intact. Strength prox and distally 5/5 throughout. Sensation grossly intact to light touch. LECHUGA x4. No cerebellar signs, no dysmetria, bilateral finger to nose and heel to parmar equal and symmetric. Speech clear. Skin: warm and well perfused, cap refill <2 sec, normal color (Aruna Montes) Past History <Aruna Montes - Last Filed: 04/07/18 13:25> - Past Medical History Anemia: No Asthma: No Cancer: No Cardiac Disorders: No CVA: No COPD: No CHF: No Dementia: No Diabetes: No GI Disorders: No Disorders: No HTN: No Hypercholesterolemia: No Liver Disease: No Seizures: No Thyroid Disease: No - Surgical History Cholecystectomy: Yes - Immunization History Immunization Up to Date: Yes - Suicide/Smoking/Psychosocial Hx Smoking Status: Yes Smoking History: Former smoker Have you smoked in the past 12 months: Yes Number of Cigarettes Smoked Daily: 10 If you are a former smoker, when did you quit?: few weeks ago Information on smoking cessation initiated: No 'Breaking Loose' booklet given: 06/13/16 Hx Alcohol Use: No Drug/Substance Use Hx: No Substance Use Type: None Hx Substance Use Treatment: No <María Marcum - Last Filed: 04/07/18 13:37> - Past Medical History Allergies/Adverse Reactions: Allergies Allergy/AdvReac Type Severity Reaction Status Date / Time No Known Allergies Allergy Verified 04/07/18 10:04 Home Medications: Ambulatory Orders Ascorbic Acid [Vitamin C] 1,000 mg PO DAILY 04/07/18 Aspirin 81 mg PO DAILY 04/07/18 Cardiac Specific PMH - Complaint Specific PMHX Pacemaker: No <María Marcum - Last Filed: 04/07/18 13:37> - Vital Signs Last Vital Signs Temp Pulse Resp BP Pulse Ox 97.9 F 89 18 129/74 88 L 04/07/18 10:05 04/07/18 10:05 04/07/18 10:05 04/07/18 10:05 04/07/18 10:05 Heart Score/ECG Review <Aruna Montes - Last Filed: 04/07/18 13:25> - ECG Impressions Normal ECG: Yes <María Marcum - Last Filed: 04/07/18 13:37> - ECG Impressions Comment:: 04/07/18 11:53 EKG normal sinus rhythm, no interval abnormalities, narrow QRS, ST and T wave segments and morphology normal. unchanged compared to prior EKGs. (María Marcum) - Procedure Monitoring Vital Signs: Procedure Monitoring Vital Signs Temperature 97.9 F 04/07/18 10:05 Pulse Rate 89 04/07/18 10:05 Respiratory Rate 18 04/07/18 10:05 Blood Pressure 129/74 04/07/18 10:05 O2 Sat by Pulse Oximetry (%) 88 L 04/07/18 10:05 ED Treatment Course - LABORATORY CBC & Chemistry Diagram: 04/07/18 10:40 04/07/18 10:40 <Aruna Montes - Last Filed: 04/07/18 13:25> - LABORATORY CBC & Chemistry Diagram: 04/07/18 10:40 04/07/18 10:40 <María Marcum - Last Filed: 04/07/18 13:37> - ADDITIONAL ORDERS Additional order review: Laboratory Results 04/07/18 10:40 Sodium 138 Potassium 4.4 Chloride 105 Carbon Dioxide 28 Anion Gap 5 L BUN 11 Creatinine 0.5 L Creat Clearance w eGFR > 60 Random Glucose 139 H Calcium 8.4 L Magnesium 2.1 Total Bilirubin 0.6 AST 13 L ALT 22 Alkaline Phosphatase 61 Troponin I < 0.02 Total Protein 6.5 Albumin 3.8 04/07/18 10:40 RBC 5.75 H MCV 90.1 MCHC 34.9 RDW 14.0 MPV 8.7 Neutrophils % 75.1 Lymphocytes % 16.9 Monocytes % 6.9 Eosinophils % 0.6 Basophils % 0.5 - RADIOLOGY Radiology Studies Ordered: Category Date Time Status BRAIN CTA [CT] Stat CT Scan 04/07/18 10:[address] WITHOUT CONTRAST [CT] Stat CT Scan 04/07/18 10:32 Completed NECK CTA [CT] Stat CT Scan 04/07/18 10:33 Taken CHEST PA & LAT [RAD] Stat Radiology 04/07/18 10:13 Ordered - Medications Given in the ED: ED Medications Discontinued Medications Generic Name Dose Route Start Last Admin Trade Name Freq PRN Reason Stop Dose Admin Meclizine HCl 25 mg 04/07/18 10:34 04/07/18 12:02 Antivert - PO 04/07/18 10:35 25 mg ONCE ONE Administration Sodium Chloride 1,000 ml 04/07/18 10:34 04/07/18 12:02 Normal Saline - IV 04/07/18 10:35 1,000 ml ONCE ONE Administration Medical Decision Making <Aruna Montes - Last Filed: 04/07/18 13:25> <María Marcum - Last Filed: 04/07/18 13:37> - Medical Decision Making 04/07/18 11:00 I, María Marcum MD, attest that this document has been prepared under my direction and personally reviewed by me in its entirety. I further attest, that it accurately reflects all work, treatment, procedures and medical decision -making performed by me. See HPI for details dDx. BPPV, peripheral vertigo, labrynthitis, orthostatics, ACS, arrhythmia, angina, Vertebral /carotid dissection/aneurysm, CVA. electrolyte/metabolic derangements Vital signs reviewed, SpO2 88%, but on recheck, breathing comfortable. no respiratory distress. remainder of VS normal. no symptoms, except intermittent vertigo with head turning a/w ear pressures. normal neuro exam, no nystagmus, no focal deficits. ambulated here. Prior notes reviewed, including admissions, discharges and consultations. laboratory results and imaging reviewed, basic labs and lytes wnl, notable for mild hemoconcentration, given hydration CXR_no acute pathology Cardiac panel_neg trop x1, so doubt angina/ACS EKG normal sinus rhythm, no interval abnormalities, narrow QRS, ST and T wave segments and morphology normal. unchanged compared to prior EKGs. CT head neg for acute pathology. CT angio head and neck pending, to eval for dissection/aneurysm ED course: IVF hydration, meclizine for suspected peripheral vertigo ambulated in the department, apparently vertigo resolved. The patient has requested to leave the ED against medical advice. Pt did not want repeat VS, with initial spO2 88% noted, refused CXR. The patient reason(s) for leaving include, but are not limited to, the following : He did not want to wait for results and thought he was getting suboptimal care given he is an employee and dissatisfied with being moved to holding area. Pt was made aware about the logistics and movement and care of the emergency department, with results still pending and second trop in the meantime to assure no ACS. I believe this patient is of sound mind and competent to refuse medical care. The patient is responding and asking questions appropriately. The patient is oriented to person, place and time. The patient is not psychotic, delusional, suicidal, homicidal or hallucinating. The patient demonstrates a normal mental capacity to make decisions regarding their healthcare. The patient is clinically sober and does not appear to be under the influence of any illicit drugs at this time. The patient has been advised of the risks, in layman terms, of leaving AMA which include, but are not limited to: cardiac arrest, severe infection, dehydration, myocardial infarction, arrhythmia, stroke, vertebral/ carotid dissection and cerebral aneurysm, respiratory failure, coma, limb paralysis, severe permanent disability, loss of current lifestyle, delay in diagnosis and . Alternatives have been offered - the patient remains steadfast in their wish to leave. will have to call back with results of CTA if abnormal, callback request made through the EMR. The patient has been advised that should they change their mind they are welcome to return to this hospital, or any other, at any time. The patient understands that in no way does an AMA discharge mean that I do not want them to have the best medical care available. To this end, I have provided appropriate prescriptions, referrals, and discharge instructions. The patient did sign AMA paperwork. The above discussion was witnessed by another member of staff, DOMINGO Tony. 04/07/18 13:30 04/07/18 13:34 04/07/18 13:34 (María Marcum) *DC/Admit/Observation/Transfer <Aruna Montes - Last Filed: 04/07/18 13:25> <María Marcum - Last Filed: 04/07/18 13:37> Diagnosis at time of Disposition: Dizziness - Discharge Dispostion Disposition: AGAINST MEDICAL ADVICE Condition at time of disposition: Stable - Referrals Referrals: Felicita Rodríguez MD [Primary Care Provider] - - Patient Instructions Printed Discharge Instructions: Vertigo Additional Instructions: you are choosing to leave against medical advice Discussion at the bedside with patient. You have capacity to make medical decisions. Discussed indications for treatment and admission, management plan, risks and benefits. There is no evidence of psychosis, altered mental status or intoxication. you understand the nature of condition and treatment plan, including potential risks but not limited to: cardiac arrest, severe infection , dehydration, myocardial infarction, arrhythmia, stroke, vertebral/carotid dissection and cerebral aneurysm, respiratory failure, coma, limb paralysis, severe permanent disability, loss of current lifestyle, delay in diagnosis and . Pt will be treated with close follow up with primary care doctor with reevaluation. Return precautions advised, call 911 immediately if severe life threatening symptoms or concerns..you have verbalized understanding of information provided, questions answered. - Attestations Scribe Attestion: 04/07/18 11:51 Documentation prepared by Aruna Montes, acting as medical pathologist for María Marcum MD (Simon,Aruna)
[2018-04-07] MEDS ORDERED: SODIUM CHLORIDE 0.9% 500 ML INFUS.BAG IV ONE (10:34)
[2018-04-07] MEDS ORDERED: MECLIZINE HCL 25 MG TABLET (FP) PO ONE (10:34)
[2018-04-07 10:49] LABS: MONO % 6.9 % (3.8-10.2)
[2018-04-07 11:00] LABS: BASO % 0.5 % (0-2.0); EOS % 0.6 % (0-4.5); HEMATOCRIT 51.8 % (35.4-49); HEMOGLOBIN 18.1 GM/dL (11.7-16.9); LYMPH % 16.9 % (8-40); MCH 31.4 pg (25.7-33.7); MCHC 34.9 g/dl (32.0-35.9); MEAN CELL VOLUME 90.1 fl (80-96); MEAN PLT VOLUME 8.7 fl (7.5-11.1); NEUT % 75.1 % (42.8-82.8); PLATELET COUNT 164 K/MM3 (134-434); RBC 5.75 M/mm3 (4.00-5.60); WHITE BLOOD COUNT 7.4 K/mm3 (4.0-10.0)
[2018-04-07 11:20] LABS: ALBUMIN 3.8 g/dl (3.4-5.0); ALK PHOS 61 U/L (45-117); ANION GAP 5 MMOL/L (8-16); BILIRUBIN,TOTAL 0.6 mg/dL (0.2-1); BLOOD UREA NITROGEN 11 mg/dL (7-18); CALCIUM 8.4 mg/dL (8.5-10.1); CHLORIDE 105 mmol/L (98-107); CO2 28 mmol/L (21-32); CREATININE 0.5 mg/dL (0.55-1.3); GLUCOSE,RANDOM 139 mg/dL (74-106); MAGNESIUM 2.1 mg/dL (1.8-2.4); POTASSIUM 4.4 mmol/L (3.5-5.1); SGOT/AST 13 U/L (15-37); SGPT/ALT 22 U/L (13-61); SODIUM 138 mmol/L (136-145); TOT PROT 6.5 g/dl (6.4-8.2)
[2018-04-07] MEDS ORDERED: MECLIZINE HCL 25 MG TABLET (FP) ONE (11:36)
--- NOTE | 2018-04-08 02:33 | EKG ---
Test Reason : Blood Pressure : / mmHG Vent. Rate : 079 BPM Atrial Rate : 079 BPM P-R Int : 124 ms QRS Dur : 084 ms QT Int : 368 ms P-R-T Axes : 041 030 033 degrees QTc Int : 421 ms NORMAL SINUS RHYTHM NORMAL ECG WHEN COMPARED WITH ECG OF 30-NOV-2017 10:35, NO SIGNIFICANT CHANGE WAS FOUND Confirmed by JUDY HASSAN MD ([id number]) on 04/08/2018 2:33:19 AM Referred By: Confirmed By:JUDY HASSAN MD
== END 2018-04-07 13:41 | disposition left against medical advice (07) ==
LOC: JER 10:01
PROC: 3E0337Z Introduction of Electrolytic and Water Balance Substance into Peripheral Vein, Percutaneous Approach (ICD-10-PCS; principal; 2018-04-07)
DX: R42 Dizziness and giddiness (principal); K21.9 Gastro-esophageal reflux disease without esophagitis; Z87.891 Personal history of nicotine dependence
CPT/HCPCS: 36415; 70450-TC; 70496-TC; 70498-TC; 80053; 83735; 84484; 85025; 93005; 93010; 99283-25

== ENCOUNTER 2018-06-17 19:06 | Emergency (ER) | payer BC ==
--- NOTE | 2018-06-17 19:18 | PDOC ---
History of Present Illness - General Stated Complaint: DIZZINESS Time Seen by Provider: 06/17/18 19:18 History Source: Patient Exam Limitations: No Limitations - History of Present Illness Initial Comments: Pt is a 48 yo M, with PMH of NIDDM and HTN (not on meds, controlled with diet), and former smoker, who is presenting with complaints of "dizziness" which has been persistent and worsening over the past 2 weeks. Pt states he feels like "his eyes are shifting" and he "may fall over" when he moves his head from side to side, changes position, or is driving for extended periods. The episodes are associated with nausea, but no vomiting, and occur during all times of the day. Pt has been seen in the ED in the past with similar symptoms, which improved with meclizine and IVF. Pt also had an MRI completed (negative) and saw ENT yesterday, with normal hearing tests and PE. Pt has not been taking any medication for allergies or vertigo other than OTC dramamine, which has not improved his symptoms. Pt denies any recent fevers/chills, headache, vision changes, syncope, chest pain, palpitations, SOB, vomiting, abdominal pain, urinary symptoms, diarrhea/constipation, or leg swelling. Social: Pt denies any cigarette, alcohol, or drug use. Former smoker of 20 years. Pt recently quit smoking and had significant weight loss. Pt denies any recent travel or sick contacts. Surgical: cholecystectomy. Family: no relevant history. 06/17/18 20:14 Past History - Travel Traveled outside of the country in the last 30 days: No Close contact w/someone who was outside of country & ill: No - Past Medical History Allergies/Adverse Reactions: Allergies Allergy/AdvReac Type Severity Reaction Status Date / Time No Known Allergies Allergy Verified 06/17/18 19:29 Home Medications: Ambulatory Orders Ascorbic Acid [Vitamin C] 1,000 mg PO DAILY 04/07/18 Aspirin 81 mg PO DAILY 04/07/18 Meclizine HCl 25 mg PO DAILY #30 tablet 06/17/18 Anemia: No Asthma: No Cancer: No Cardiac Disorders: No CVA: No COPD: No CHF: No Dementia: No Diabetes: Yes GI Disorders: No Disorders: No HTN: Yes Hypercholesterolemia: No Liver Disease: No Seizures: No Thyroid Disease: No - Surgical History Cholecystectomy: Yes - Immunization History Immunization Up to Date: Yes - Suicide/Smoking/Psychosocial Hx Smoking Status: Yes Smoking History: Former smoker Have you smoked in the past 12 months: Yes Number of Cigarettes Smoked Daily: 10 If you are a former smoker, when did you quit?: few weeks ago 'Breaking Loose' booklet given: 06/13/16 Hx Alcohol Use: No Drug/Substance Use Hx: No Substance Use Type: None Hx Substance Use Treatment: No Review of Systems - Review of Systems Able to Perform ROS?: Yes Is the patient limited Guamanian proficient: No Constitutional: Yes: Weight Stable. No: Chills, Diaphoresis, Fever, Loss of Appetite, Malaise, Weakness HEENTM: No: Eye Pain, Blurred Vision, Recent change in vision, Double Vision, Ear Discharge, Nose Pain, Nose Congestion, Tinnitus, Hearing Loss, Throat Pain, Throat Swelling, Difficulty Swallowing Respiratory: No: Cough, Orthopnea, Shortness of Breath Cardiac (ROS): No: Chest Pain, Edema, Irregular Heart Rate, Lightheadedness, Palpitations, Syncope, Chest Tightness ABD/GI: Yes: Nausea. No: Constipated, Diarrhea, Poor Appetite, Poor Fluid Intake, Vomiting : No: Burning, Dysuria, Pain, Urgency Musculoskeletal: No: Back Pain, Joint Pain, Muscle Pain, Muscle Weakness Integumentary: No: Rash Neurological: Yes: Dizziness. No: Headache, Numbness, Paresthesia, Weakness, Unsteady Gait, Ataxia Psychiatric: Yes: Stressors. No: Sleep Pattern Change, Change in Appetite Endocrine: No: Increased Urine, Change in Weight Hematologic/Lymphatic: No: Anemia, Blood Clots, Easy Bleeding, Easy Bruising All Other Systems: Reviewed and Negative *Physical Exam - Physical Exam Comments: Vitals stable, pt afebrile. Pt in NAD, lying comfortably. Normal body habitus. Pt alert and oriented x3. director of supply chain generally intact, muscular strength and sensation intact. Cerebellar tests WNL. No midline spinal tenderness, step-offs, or crepitus. Head normocephalic, atraumatic. Eyes PERRLA, EOMI without nystagmus. Oropharynx without erythema or exudates, no LAD b/l. Boggy nasal turbinates. B/l TMs without erythema nor bulging. Hearing intact. Clear heart sounds, S1/S2, no JVD, b/l pedal edema, or heart murmur. Clear lung sounds, no respiratory distress, wheezes, crackles, or accessory muscle use. No abdominal or CVA tenderness to palpation, no rebound, no guarding. Abdomen soft, non-distended, and with normoactive bowel sounds. Skin without jaundice or rash. Symptoms induced with having pt turn his head and sitting up. Attempted Nnamdi maneuver and pt states it improved his symptoms. 06/17/18 20:02 ED Treatment Course - LABORATORY CBC & Chemistry Diagram: 06/17/18 19:52 06/17/18 19:46 Medical Decision Making - Medical Decision Making Pt was seen at bedside, also will be seen by attending Dr. Olguin. Pt presenting with complaints of "dizziness" which has been persistent and worsening over the past 2 weeks. Pt states he feels like "his eyes are shifting " and he "may fall over" when he moves his head from side to side, changes position, or is driving for extended periods. The episodes are associated with nausea, but no vomiting, and occur during all times of the day. Pt has been seen in the ED in the past with similar symptoms, which improved with meclizine and IVF. Pt also had an MRI completed (negative) and saw ENT yesterday, with normal hearing tests and PE. Pt has not been taking any medication for allergies or vertigo other than OTC dramamine, which has not improved his symptoms. Pt denies any recent fevers/chills, headache, vision changes, syncope , chest pain, palpitations, SOB, vomiting, abdominal pain, urinary symptoms, diarrhea/constipation, or leg swelling. Likely BPPV vs otoliths vs labrynthitis, considering symptoms begin with moving his head and eyes. Pt has had a negative MRI, so unlikely any central lesions or cerebellar ischemia. Pt has low HEART score and no associated chest pain, unlikely ACS as cause. Ordered work-up including CBC, CMP, and ECG. Provided 1 L IV NS, 10 mg IV reglan, 25 mg PO meclizine, and 2 mg PO valium for improvement of vertigo. Will continue to reassess pt and monitor for symptomatic improvement. ECG: NSR, intervals WNL (HR 86, LA 124, QRS 88, QTc 428). No TWIs or significant ST segment changes. Flattened in lead III only (present on prior). No significant changes from prior ECG (04/07/2018). Dr. Christie (neurology) saw the pt at bedside, and suggested to add 2 mg PO valium to reglan and meclizine, as pt has had a lot of recent stress. 06/17/18 20:05 *DC/Admit/Observation/Transfer Diagnosis at time of Disposition: Peripheral vertigo Qualifiers: Laterality: unspecified laterality Qualified Code(s): H81.399 - Other peripheral vertigo, unspecified ear - Discharge Dispostion Disposition: HOME Condition at time of disposition: Improved Decision to Admit order: No - Prescriptions Prescriptions: Meclizine HCl 25 mg PO DAILY #30 tablet - Referrals Referrals: Carl Enamorado MD [Staff Physician] - Meghann Christie MD [Staff Physician] - Felicita Rodríguez MD [Primary Care Provider] - - Patient Instructions Printed Discharge Instructions: DI for Benign Paroxysmal Positional Vertigo Additional Instructions: You were seen in the ER today for vertigo. The results of your labs today were normal. Please follow-up with your primary care doctor and neurology within 1-2 days to discuss your visit and make sure your symptoms have improved. Please return to the ER if you have any worsening vertigo or inability to walk, development of headache or vision changes, development of fevers or chills, loss of consciousness, inability to tolerate food or fluids, or any other concerns. - Post Discharge Activity
[2018-06-17 19:29] VITALS: BP 141/86; PULSE 85; TEMP 97.5; BMI 26.6
--- NOTE | 2018-06-17 19:29 | PDOC ---
Documentation entered by Devorah Isaac SCRIBE, acting as scribe for Svetlana Olguin DO. Svetlana Olguin DO: This documentation has been prepared by the Poncho pineda Adrianna, SCRIBE, under my direction and personally reviewed by me in its entirety. I confirm that the documentation accurately reflects all work, treatment, procedures, and medical decision making performed by me. 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 Patient notes he has been experiencing dizziness for the past two weeks, which is exacerbated with sitting up from lying down and with lateral rotations of the head. He describes the dizziness as room-spinning, and notes it induces nausea and pressure in his ears. Patient endorses one episode of NBNB vomit 5 days ago following the vertigo episode. He reports taking non-drowsy Dramamine, with mild relief of symptoms. Patient had normal MRI 3 days ago, and went to ENT yesterday where he was prescribed Meclizine which he has not yet begun. He reports coming to the ED today because symptoms were onset while he was driving. The patient denies chest pain, shortness of breath, headache. Denies fever, chills, diarrhea and constipation. Denies dysuria, frequency, urgency and hematuria. Allergies: NKA Past surgical history: Cholecystectomy Social history: Former smoker (quit a few weeks ago) PCP: Dr. Felicita Rodríguez ENT: Dr. Carl Enamorado Nuerologist: Dr. Meghann Christie 06/17/18 20:02 - Physicial Exam PE: GENERAL: Awake, alert, and fully oriented, in no acute distress HEAD: No signs of trauma EYES: +Mild right-sided nystagmus upon sitting up, otherwise none. PERRLA, EOMI , sclera anicteric, conjunctiva clear ENT: Auricles normal inspection, hearing grossly normal, nares patent, oropharynx clear without exudates. Moist mucosa NECK: Normal ROM, supple, no lymphadenopathy, JVD, or masses LUNGS: Breath sounds equal, clear to auscultation bilaterally. No wheezes, and no crackles HEART: Regular rate and rhythm, normal S1 and S2, no murmurs, rubs or gallops ABDOMEN: Soft, nontender, normoactive bowel sounds. No guarding, no rebound. No masses EXTREMITIES: Normal range of motion, no edema. No clubbing or cyanosis. No cords, erythema, or tenderness NEUROLOGICAL: +Mild right-sided nystagmus upon sitting up, otherwise none. Cranial nerves II through XII grossly intact. Normal speech, normal gait SKIN: Warm, Dry, normal turgor, no rashes or lesions noted. 06/17/18 20:03 - Medical Decision Making 06/17/18 19:28 I, Dr. Svetlana Olguin, DO, attest that this document has been prepared under my direction and personally reviewed by me in its entirety. I further attest, that it accurately reflects all work, treatment, procedures and medical decision -making performed by me. 06/17/18 19:51 a/p: 48yo male with hx of vertigo - follows with Dr. Christie and Dr. Wu presents for an episode of vertigo -pt had normal MRI on thursday and was seen by Dr. Wu yesterday who recommended meclizine - pt was using dramamine and didn't want the meclizine yesterday -was driving today when he felt dizzy -pt c/o nausea, but no vomiting -pt states dizziness is worse when moving his head -Dr. Christie at the bedside -will send labs, ekg, meclizine, reglan, valium -will monitor and reassess -pt is nontoxic in appearance -neuro intact 06/17/18 20:39 labs reviewed and stable mild dehydration 06/17/18 20:54 pt ambulatory with a steady gait will dc with meclizine discussed labs pt states feeling much better no longer with dizziness Heart Score/ECG Review - ECG Intrepretation Comment:: 06/17/18 19:28 sinus at 86, nl axis, nl interval, no acute st/t wave findings
[2018-06-17] MEDS ORDERED: MECLIZINE HCL 25 MG TABLET (FP) PO ONE (19:42)
[2018-06-17] MEDS ORDERED: SODIUM CHLORIDE 1,000 ML IV STA (19:42)
[2018-06-17] MEDS ORDERED: METOCLOPRAMIDE HCL INJECTION 10 MG/2 ML VIAL IVPUSH ONE (19:45)
[2018-06-17] MEDS ORDERED: diazePAM 2 MG TABLET PO ONE (19:45)
--- NOTE | 2018-06-17 19:50 | CON.NEURO ---
Consult Consult Specialty:: [facility] Reason for Consultation:: dizzy - History of Present Illness History of Present Illness: 48 years old man with PM smoker Prior TIA High Chol with diziiness No fall two weeks getting worse No neause No voimting Saw ENT was suppose to get VNG MRI negative - History Source History Provided By: Patient - Past Medical History Endocrine: Yes: Diabetes Mellitus (stopped Invokana 1 yr ago because of normal A1C and weight loss) - Past Surgical History Past Surgical History: Yes: Cholecystectomy (laparoscopic) - Alcohol/Substance Use Hx Alcohol Use: Yes (social) History of Substance Use: reports: None - Smoking History Smoking history: Never smoked Have you smoked in the past 12 months: No Aproximately how many cigarettes per day: 10 If you are a former smoker, when did you quit?: few weeks ago - Social History ADL: Independent 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 History of Recent Travel: Yes ([place] 8 days, returned last week) Home Medications - Allergies Allergies/Adverse Reactions: Allergies Allergy/AdvReac Type Severity Reaction Status Date / Time No Known Allergies Allergy Verified 06/17/18 19:29 - Home Medications Home Medications: Ambulatory Orders Ascorbic Acid [Vitamin C] 1,000 mg PO DAILY 04/07/18 Aspirin 81 mg PO DAILY 04/07/18 Family Disease History - Family Disease History Family History: Denies Family Disease History: Diabetes: Father (pancreatic at 90), Mother, [place]: Father Review of Systems - Review of Systems Constitutional: reports: No Symptoms Eyes: reports: No Symptoms Neurological: reports: Headache, Incoordination, Numbness, Parasthesia Physical Exam-Neuro Vital Signs: Vital Signs Temperature 97.5 F L 06/17/18 19:25 Pulse Rate 85 06/17/18 19:25 Respiratory Rate 18 06/17/18 19:25 Blood Pressure 141/86 06/17/18 19:25 O2 Sat by Pulse Oximetry (%) 100 06/17/18 19:25 Constitutional: Yes: Well Nourished Neck: Yes: WNL - Neuro Exam Level Of Consciousness: Yes: Oriented to Person, Oriented to Place, Oriented to Time Eyes: Yes: PERRLA Speech: WNL Dominant Hand: Right Cranial Nerves II-XII Intact: Yes Gag: Present DTR's: 1+ Left Bicep, 1+ Right Bicep, 1+ Left Tricep, 1+ Right Tricep Response to light touch: Normal Response to pain prick: Normal Response to temperature: Normal Response to vibration: Normal Motor Strength: 4/5: Left Arm, Right Arm, Left Leg, Right Leg Gait: Deferred Imaging - Results MRI: Image Reviewed Problem List - Problems (1) Dizziness Assessment/Plan: Subacute Labrynithis 1. Meclizine with Regaln 2. One dosage of Valium 2 mg 3. IV fluids Code(s): R42 - DIZZINESS AND GIDDINESS
[2018-06-17] MEDS ORDERED: METOCLOPRAMIDE HCL INJECTION 10 MG/2 ML VIAL ONE (19:57)
[2018-06-17] MEDS ORDERED: diazePAM 2 MG TABLET ONE (19:57)
[2018-06-17] MEDS ORDERED: MECLIZINE HCL 25 MG TABLET (FP) ONE (19:58)
[2018-06-17 20:08] LABS: BASO % 0.9 % (0-2.0); EOS % 1.8 % (0-4.5); HEMATOCRIT 49.7 % (35.4-49); HEMOGLOBIN 16.5 GM/dL (11.7-16.9); LYMPH % 25.5 % (8-40); MCH 29.2 pg (25.7-33.7); MCHC 33.1 g/dl (32.0-35.9); MEAN CELL VOLUME 88.2 fl (80-96); MEAN PLT VOLUME 8.5 fl (7.5-11.1); MONO % 6.8 % (3.8-10.2); PLATELET COUNT 216 K/MM3 (134-434); RBC 5.64 M/mm3 (4.00-5.60); RDW 12.7 % (11.9-15.9); WHITE BLOOD COUNT 8.7 K/mm3 (4.0-10.0)
[2018-06-17 20:31] LABS: ALK PHOS 64 U/L (45-117); ANION GAP 6 MMOL/L (8-16); BILIRUBIN,TOTAL 0.4 mg/dL (0.2-1); BLOOD UREA NITROGEN 20 mg/dL (7-18); CHLORIDE 105 mmol/L (98-107); CO2 29 mmol/L (21-32); CREATININE 0.5 mg/dL (0.55-1.3); GLUCOSE,RANDOM 166 mg/dL (74-106); POTASSIUM 4.1 mmol/L (3.5-5.1); SGOT/AST 16 U/L (15-37); SGPT/ALT 26 U/L (13-61); SODIUM 140 mmol/L (136-145); TOT PROT 6.6 g/dl (6.4-8.2)
--- NOTE | 2018-06-18 10:51 | EKG ---
Test Reason : Blood Pressure : / mmHG Vent. Rate : 086 BPM Atrial Rate : 086 BPM P-R Int : 124 ms QRS Dur : 088 ms QT Int : 358 ms P-R-T Axes : 041 015 024 degrees QTc Int : 428 ms POOR DATA QUALITY, INTERPRETATION MAY BE ADVERSELY AFFECTED NORMAL SINUS RHYTHM NORMAL ECG WHEN COMPARED WITH ECG OF 07-APR-2018 10:31, NO SIGNIFICANT CHANGE WAS FOUND Confirmed by MAXIMO MCCARTNEY MD ([id number]) on 06/18/2018 10:51:13 AM Referred By: Confirmed By:MAXIMO MCCARTNEY MD
== END 2018-06-17 20:57 | disposition home or self-care (01) ==
LOC: JER 19:06
PROC: 3E0337Z Introduction of Electrolytic and Water Balance Substance into Peripheral Vein, Percutaneous Approach (ICD-10-PCS; principal; 2018-06-17)
PROC: 3E033GC Introduction of Other Therapeutic Substance into Peripheral Vein, Percutaneous Approach (ICD-10-PCS; 2018-06-17)
DX: H81.399 Other peripheral vertigo, unspecified ear (principal); I10 Essential (primary) hypertension; E11.9 Type 2 diabetes mellitus without complications; K21.9 Gastro-esophageal reflux disease without esophagitis
CPT/HCPCS: 36415; 80053; 85025; 93005; 93010; 99283-25; J7030

== ENCOUNTER → 2019-01-05 | Emergency (ER) | payer BC ==
[~2019-01-05] MED LIST changes: +ASPIRIN 81 MG CHEWABLE TABLETS ONE; +ASPIRIN 81 MG CHEWABLE TABLETS PO ONE; -BUPIVACAINE HCL/PF 0.5% (5MG/ML) 10 ML VIAL IJ ONE; +HEPARIN - 25,000 UNIT in SODIUM CHLORIDE 495 ML IV SCH; +HEPARIN INFUSION - 25,000 UNITS/500 ML INFUS.BAG IVPB ONE; +HEPARIN NA (PORCINE) 5,000 UNITS/ML 1ML VIAL IVPUSH PRN; +HEPARIN NA (PORCINE) 5,000 UNITS/ML 1ML VIAL ONE; -LIDOCAINE HCL 1%, 10 MG/ML (20ML VIAL) IJ ONE; +NITROGLYCERIN 25MG/D5W 250ML 25 MG/250 ML ML IVPB ONE; +NITROGLYCERIN 25MG/D5W 250ML 25 MG/250 ML ML IVPB SCH; +NITROGLYCERIN SUBLINGUAL 1/150 0.4 MG TAB SL ONE; +TICAGRELOR 90 MG TABLET PO ONE; +TICAGRELOR 90 MG TABLET PO STA
[2019-01-05 01:56] VITALS: TEMP 98.2; BMI 27.8
--- NOTE | 2019-01-05 02:33 | PDOC ---
Attending Attestation - Resident Resident Name: GeorgiaAnjana - ED Attending Attestation I have performed the following: I have examined & evaluated the patient, The case was reviewed & discussed with the resident, I agree w/resident's findings & plan - HPI HPI: 01/05/19 03:21 see resident exam - Physicial Exam PE: 01/05/19 03:22 agree with resident exam - Medical Decision Making 01/05/19 03:22 48-year-old male with chest pain radiating to the throat and right upper extremity Blood pressure elevated on arrival Chest x-ray shows a normal-sized mediastinum with no obvious infiltrates Plan for enzymes, aspirin, nitrates and admission to medical service for further work-up
--- NOTE | 2019-01-05 02:42 | PDOC ---
History of Present Illness - General Chief Complaint: Chest Pain Stated Complaint: CHEST PAIN Time Seen by Provider: 01/05/19 02:31 History Source: Patient Exam Limitations: No Limitations - History of Present Illness Initial Comments: Pt is a 48 yo M, with PMH of HTN and NIDDM (diet controlled), who is presenting via car from home with complaints of chest pain. Pt states the pain started while at rest, is pressure-like, and is radiating down the right arm. The pain is intermittent, lasts for a few minutes, and is increasing in severity. It is not associated with nausea/vomiting or diaphoresis. There are no exacerbating or alleviating factors. Pt states he is stressed today because his children received poor health news today. Pt denies any recent fevers/chills, headache, vision changes, syncope, palpitations, SOB, nausea/vomiting, abdominal pain, urinary symptoms, diarrhea/constipation, or leg swelling. Allergies: NKDA PCP: Dr. Rodríguez Social: Pt denies any cigarette, alcohol, or drug use. Former smoker. Pt denies any recent travel or sick contacts. Surgical: cholecystectomy Family: no relevant history. 01/05/19 04:14 Past History - Travel Traveled outside of the country in the last 30 days: No Close contact w/someone who was outside of country & ill: No - Past Medical History Allergies/Adverse Reactions: Allergies Allergy/AdvReac Type Severity Reaction Status Date / Time No Known Allergies Allergy Verified 01/05/19 01:56 Home Medications: Ambulatory Orders Ascorbic Acid [Vitamin C] 1,000 mg PO DAILY 04/07/18 Aspirin 81 mg PO DAILY 04/07/18 Meclizine HCl 25 mg PO DAILY #30 tablet 06/17/18 Anemia: No Asthma: No Cancer: No Cardiac Disorders: No CVA: No COPD: No CHF: No Dementia: No Diabetes: Yes GI Disorders: No Disorders: No HTN: Yes Hypercholesterolemia: No Liver Disease: No Seizures: No Thyroid Disease: No - Surgical History Cholecystectomy: Yes - Immunization History Immunization Up to Date: Yes - Psycho Social/Smoking Cessation Hx Smoking Status: Yes Smoking History: Unknown if ever smoked Have you smoked in the past 12 months: Yes Number of Cigarettes Smoked Daily: 10 If you are a former smoker, when did you quit?: few weeks ago 'Breaking Loose' booklet given: 06/13/16 Hx Alcohol Use: No Drug/Substance Use Hx: No Substance Use Type: None Hx Substance Use Treatment: No Cardiac Specific PMH - Complaint Specific PMHX Abdominal Aortic Aneurysm: No Angina: No Cardiac Arrhythmia: No Cardiac Stent: No GERD: No Myocardial Infarction: No Pacemaker: No Pulmonary Embolus: No Valvular Heart Disease: No Peripheral Vascular Disease: No Review of Systems - Review of Systems Able to Perform ROS?: Yes Is the patient limited Upper Sorbian proficient: No Constitutional: Yes: Weight Stable. No: Chills, Diaphoresis, Fever, Loss of Appetite, Malaise, Weakness HEENTM: No: Recent change in vision, Nose Congestion, Throat Pain, Throat Swelling, Difficulty Swallowing Respiratory: No: Cough, Orthopnea, Shortness of Breath Cardiac (ROS): Yes: Chest Pain. No: Edema, Irregular Heart Rate, Lightheadedness, Palpitations, Syncope, Chest Tightness ABD/GI: No: Constipated, Diarrhea, Nausea, Poor Appetite, Poor Fluid Intake, Vomiting : No: Burning, Dysuria, Frequency, Hematuria, Pain, Urgency Musculoskeletal: No: Back Pain, Joint Pain, Muscle Pain, Muscle Weakness Integumentary: No: Rash Neurological: No: Headache, Numbness, Weakness, Unsteady Gait, Dizziness Psychiatric: No: Sleep Pattern Change, Change in Appetite Endocrine: No: Increased Urine, Change in Weight Hematologic/Lymphatic: No: Anemia, Blood Clots, Easy Bleeding, Easy Bruising All Other Systems: Reviewed and Negative *Physical Exam - Vital Signs Last Vital Signs Temp Pulse Resp BP Pulse Ox 98.2 F 75 18 120/75 98 01/05/19 01:51 01/05/19 04:41 01/05/19 04:41 01/05/19 04:41 01/05/19 04:41 - Physical Exam Comments: HTN (166/120), pt afebrile. Pt appears anxious, but in NAD. Normal body habitus. Pt alert and oriented x3. chiropractic physician generally intact, muscular strength and sensation intact. No midline spinal tenderness, step-offs, or crepitus. Head normocephalic, atraumatic. Eyes PERRLA, EOMI. Oropharynx without erythema or exudates, no LAD b/l. No nasal congestion. Hearing intact. Clear heart sounds, S1/S2, no JVD, b/l pedal edema, or heart murmur. No reproducible chest wall TTP. Clear lung sounds, no respiratory distress, wheezes, crackles, or accessory muscle use. No abdominal or CVA tenderness to palpation, no rebound, no guarding. Abdomen soft, non-distended, and with normoactive bowel sounds. Skin without jaundice or rash. 01/05/19 04:19 Vital Signs - Vital Signs #1 Blood Pressure: 120/75 Pulse Rate: 75 Respiratory Rate: 18 O2 Sat by Pulse Oximetry (%): 98 Oxygen Delivery Method: Room Air Heart Score/ECG Review - History History: Moderately suspicious - Electrocardiogram EKG: Non specific repolarization disturbance - Age Age: 45-65 - Risk Factors Risk Factors Heart Score: Yes Hx Hypertension, Yes Hx Diabetes, Yes Smoking History Based on the list above the patient has:: >/=3 risk factors or Hx atherosclerotic disease - Troponin Troponin: 1-3x normal limit - Score Heart Score - Total: 6 ED Treatment Course - LABORATORY CBC & Chemistry Diagram: 01/05/19 02:41 01/05/19 02:41 - ADDITIONAL ORDERS Additional order review: Laboratory Results 01/05/19 01/05/19 02:41 02:41 PT with INR 11.50 INR 0.97 PTT (Actin FS) 29.7 Sodium 139 Potassium 4.6 Chloride 106 Carbon Dioxide 28 Anion Gap 5 L BUN 14.6 Creatinine 0.6 Est GFR (CKD-EPI)AfAm 135.87 Est GFR (CKD-EPI)NonAf 117.23 Random Glucose 226 H Calcium 8.8 Total Bilirubin 0.4 AST 12 L ALT 29 Alkaline Phosphatase 56 Creatine Kinase 125 Troponin I 0.10 H B-Natriuretic Peptide 46.4 Total Protein 6.5 Albumin 3.9 01/05/19 02:41 RBC 5.53 MCV 87.7 MCHC 33.4 RDW 13.5 MPV 9.0 - Medications Given in the ED: ED Medications Discontinued Medications Generic Name Dose Route Start Last Admin Trade Name Freq PRN Reason Stop Dose Admin Aspirin 243 mg 01/05/19 02:48 01/05/19 02:53 Asa - PO 01/05/19 02:49 243 mg ONCE ONE Administration Nitroglycerin 0.4 mg 01/05/19 02:48 01/05/19 02:53 Nitrostat - SL 01/05/19 02:49 0.4 mg ONCE ONE Administration Medical Decision Making - Medical Decision Making Pt was seen at bedside, also will be seen by attending Dr. Billingsley. Pt presenting with complaints of chest pain. Will evaluate for ACS vs aortic dissection vs infection vs electrolyte abnormalities vs GERD vs anxiety. Provided 0.4 SL NG and 243 mg PO aspirin (pt took 81 mg prior to arrival) for improvement of chest discomfort. Will continue to reassess pt and monitor for symptomatic improvement. ECG: NSR, intervals WNL (HR 73, OR 122, QRS 86, QTc 423). Peaked T waves V2-V3, upright V1, TWI in III. Pt now upright in V1 compared to prior ECG (06/2017). 01/05/19 04:20 Chest x-ray with no acute pathology noted; mediastinum not widened compared to prior imaging. CBC WNL CMP: BGM 226 Trop 0.10 -- repeat at 5:45 Repeat ECG with no new changes. Spoke with on-call cardiology (Dr. Manning, [facility]) who suggested heparin and repeat trop/serial EKG. Pt will be admitted to hospitalist team for ACS r/o, AC, and repeat troponin. Paged hospitalist team for admission. 01/05/19 04:22 01/05/19 04:40 Pt admitted to hospitalist team (Dr. Rodríguez). 2nd troponin being sent to lab. Will monitor. Pt resting comfortably. 01/05/19 05:42 Discharge - Discharge Information Problems reviewed: Yes Clinical Impression/Diagnosis: Troponin I above reference range Chest pain Qualifiers: Chest pain type: unspecified Qualified Code(s): R07.9 - Chest pain, unspecified Condition: Stable - Admission Yes - Follow up/Referral Referrals: Felicita Rodríguez MD [Primary Care Provider] - - Patient Discharge Instructions - Post Discharge Activity
[2019-01-05 03:21] LABS: INR 0.97 (0.83-1.09); PROTHROMBIN TIME (PATIENT) 11.5 SEC (9.7-13.0)
[2019-01-05 03:23] LABS: ACTIVATED PTT 29.7 SECONDS (25.2-36.5); HEMATOCRIT 48.5 % (35.4-49); HEMOGLOBIN 16.2 GM/dL (11.7-16.9); MCH 29.3 pg (25.7-33.7); MCHC 33.4 g/dl (32.0-35.9); MEAN CELL VOLUME 87.7 fl (80-96); PLATELET COUNT 216 K/MM3 (134-434); RBC 5.53 M/mm3 (4.00-5.60); RDW 13.5 % (11.9-15.9); WHITE BLOOD COUNT 8.1 K/mm3 (4.0-10.0)
[2019-01-05 03:33] LABS: ALBUMIN 3.9 g/dl (3.4-5.0); BILIRUBIN,TOTAL 0.4 mg/dL (0.2-1); BLOOD UREA NITROGEN 14.6 mg/dL (7-18); CALCIUM 8.8 mg/dL (8.5-10.1); CREATININE 0.6 mg/dL (0.55-1.3); N-TERMINAL BNP 46.4 pg/ml (5-125); POTASSIUM 4.6 mmol/L (3.5-5.1); TOT PROT 6.5 g/dl (6.4-8.2)
--- NOTE | 2019-01-05 07:45 | PDOC ---
*Physical Exam - Vital Signs Last Vital Signs Temp Pulse Resp BP Pulse Ox 98.2 F 68 18 112/71 99 01/05/19 01:51 01/05/19 05:53 01/05/19 05:53 01/05/19 05:53 01/05/19 05:53 - Physical Exam Comments: 01/05/19 07:44 Patient accepted for transfer to [facility]. EMS at bedside. Patient loaded with Brilinta as per cardiology recommendation. Nitroglycerin drip started 20 mcg/min. Patient with minimal discomfort at this time. ED Treatment Course - LABORATORY CBC & Chemistry Diagram: 01/05/19 02:41 01/05/19 02:41 - ADDITIONAL ORDERS Additional order review: Laboratory Results 01/05/19 01/05/19 02:41 02:41 PT with INR 11.50 INR 0.97 PTT (Actin FS) 29.7 Sodium 139 Potassium 4.6 Chloride 106 Carbon Dioxide 28 Anion Gap 5 L BUN 14.6 Creatinine 0.6 Est GFR (CKD-EPI)AfAm 135.87 Est GFR (CKD-EPI)NonAf 117.23 Random Glucose 226 H Calcium 8.8 Total Bilirubin 0.4 AST 12 L ALT 29 Alkaline Phosphatase 56 Creatine Kinase 125 Troponin I 0.10 H B-Natriuretic Peptide 46.4 Total Protein 6.5 Albumin 3.9 01/05/19 02:41 RBC 5.53 MCV 87.7 MCHC 33.4 RDW 13.5 MPV 9.0 - Medications Given in the ED: ED Medications Discontinued Medications Generic Name Dose Route Start Last Admin Trade Name Freq PRN Reason Stop Dose Admin Aspirin 243 mg 01/05/19 02:48 01/05/19 02:53 Asa - PO 01/05/19 02:49 243 mg ONCE ONE Administration Nitroglycerin 0.4 mg 01/05/19 02:48 01/05/19 02:53 Nitrostat - SL 01/05/19 02:49 0.4 mg ONCE ONE Administration Discharge - Discharge Information Clinical Impression/Diagnosis: Troponin I above reference range Chest pain Qualifiers: Chest pain type: unspecified Qualified Code(s): R07.9 - Chest pain, unspecified Condition: Stable Disposition: TRANSFER ACUTE CARE/OTHER HOSP - Follow up/Referral - Patient Discharge Instructions - Post Discharge Activity
[2019-01-05 07:49] VITALS: PULSE 79
[2019-01-05 07:53] VITALS: BP 113/70
--- NOTE | 2019-01-05 10:07 | HP ---
Admitting History and Physical - Primary Care Physician PCP: Felicita Rodríguez - Past Medical History Endocrine: Yes: Diabetes Mellitus (stopped Invokana 1 yr ago because of normal A1C and weight loss) - Past Surgical History Past Surgical History: Yes: Cholecystectomy (laparoscopic) - Smoking History Smoking history: Unknown if ever smoked Have you smoked in the past 12 months: Yes Aproximately how many cigarettes per day: 10 If you are a former smoker, when did you quit?: few weeks ago - Alcohol/Substance Use Hx Alcohol Use: No History of Substance Use: reports: None - Social History ADL: Independent Occupation: hospital deputy administrator History of Recent Travel: Yes ([place] 8 days, returned last week) Home Medications - Allergies Allergies/Adverse Reactions: Allergies Allergy/AdvReac Type Severity Reaction Status Date / Time No Known Allergies Allergy Verified 01/05/19 01:56 - Home Medications Home Medications: Ambulatory Orders Ascorbic Acid [Vitamin C] 1,000 mg PO DAILY 04/07/18 Aspirin 81 mg PO DAILY 04/07/18 Meclizine HCl 25 mg PO DAILY #30 tablet 06/17/18 Physical Examination Vital Signs: Vital Signs Temperature 98.2 F 01/05/19 01:51 Pulse Rate 79 01/05/19 07:48 Respiratory Rate 16 01/05/19 07:48 Blood Pressure 113/70 01/05/19 07:53 O2 Sat by Pulse Oximetry (%) 99 01/05/19 07:48 Labs: CBC, BMP 01/05/19 02:41 01/05/19 02:41
--- NOTE | 2019-01-05 10:08 | DS ---
Physical Examination Vital Signs: Vital Signs Temperature 98.2 F 01/05/19 01:51 Pulse Rate 79 01/05/19 07:48 Respiratory Rate 16 01/05/19 07:48 Blood Pressure 113/70 01/05/19 07:53 O2 Sat by Pulse Oximetry (%) 99 01/05/19 07:48 Findings/Remarks: CHEST PAIN = TROPONIN INCREASING TRANSFERRING TO [facility] Constitutional: Yes: Mild Distress Cardiovascular: Yes: Regular Rate and Rhythm Respiratory: Yes: WNL Gastrointestinal: Yes: WNL Labs: CBC, BMP 01/05/19 02:41 01/05/19 02:41 Discharge Summary Problems reviewed: Yes Reason For Visit: ELEVATED TROPONIN I LEVER, CHEST PAIN Current Active Problems Chest pain (Acute) Troponin I above reference range (Acute) Condition: Stable - Instructions Referrals: Felicita Rodríguez MD [Primary Care Provider] - Disposition: TRANSFER ACUTE CARE/OTHER HOSP - Home Medications Comprehensive Discharge Medication List: Ambulatory Orders Ascorbic Acid [Vitamin C] 1,000 mg PO DAILY 04/07/18 Aspirin 81 mg PO DAILY 04/07/18 Meclizine HCl 25 mg PO DAILY #30 tablet 06/17/18
--- NOTE | 2019-01-05 10:33 | EKG ---
Test Reason : Blood Pressure : / mmHG Vent. Rate : 069 BPM Atrial Rate : 069 BPM P-R Int : 124 ms QRS Dur : 086 ms QT Int : 388 ms P-R-T Axes : 037 005 001 degrees QTc Int : 415 ms NORMAL SINUS RHYTHM NORMAL ECG WHEN COMPARED WITH ECG OF 05-JAN-2019 03:53, NO SIGNIFICANT CHANGE WAS FOUND Confirmed by SASHA GONZALES MD ([id number]) on 01/05/2019 10:33:19 AM Referred By: Confirmed By:SASHA GONZALES MD
--- NOTE | 2019-01-05 10:34 | EKG ---
Test Reason : Blood Pressure : / mmHG Vent. Rate : 079 BPM Atrial Rate : 079 BPM P-R Int : 124 ms QRS Dur : 090 ms QT Int : 366 ms P-R-T Axes : 036 002 011 degrees QTc Int : 419 ms NORMAL SINUS RHYTHM NORMAL ECG WHEN COMPARED WITH ECG OF 17-JUN-2018 19:19, NO SIGNIFICANT CHANGE WAS FOUND Confirmed by SASHA GONZALES MD ([id number]) on 01/05/2019 10:33:49 AM Referred By: Confirmed By:SASHA GONZALES MD
--- NOTE | 2019-01-05 10:35 | EKG ---
Test Reason : Blood Pressure : / mmHG Vent. Rate : 073 BPM Atrial Rate : 073 BPM P-R Int : 122 ms QRS Dur : 086 ms QT Int : 384 ms P-R-T Axes : 042 011 018 degrees QTc Int : 423 ms NORMAL SINUS RHYTHM NORMAL ECG WHEN COMPARED WITH ECG OF 05-JAN-2019 01:48, NO SIGNIFICANT CHANGE WAS FOUND Confirmed by SASHA GONZALES MD ([id number]) on 01/05/2019 10:34:51 AM Referred By: Confirmed By:SASHA GONZALES MD
== END | disposition short-term general hospital (02) ==
LOC: JER 01:45 → UNDOADMIN 04:03 → JERBED 04:03
PROC: 3E033GC Introduction of Other Therapeutic Substance into Peripheral Vein, Percutaneous Approach (ICD-10-PCS; principal; 2019-01-05)
DX: R07.9 Chest pain, unspecified (principal); E11.9 Type 2 diabetes mellitus without complications; I10 Essential (primary) hypertension; Z87.891 Personal history of nicotine dependence
CPT/HCPCS: 36415; 71045-TC-FY; 80053; 82550; 83880; 84484; 85027; 85610; 85730; 93005; 93010; 99285-25; J1644

== ENCOUNTER 2019-09-07 22:06 | Emergency (ER) | payer BC ==
[2019-09-07] MEDS ORDERED: NITROGLYCERIN SUBLINGUAL 1/150 0.4 MG TAB SL ONE (22:17)
[2019-09-07] MEDS ORDERED: ASPIRIN 81 MG CHEWABLE TABLETS PO ONE (22:18)
[2019-09-07 22:21] VITALS: BP 125/87; PULSE 85; TEMP 97.2; BMI 27.8
[2019-09-07] MEDS ORDERED: NITROGLYCERIN SUBLINGUAL 1/150 0.4 MG TAB ONE (22:23)
[2019-09-07] MEDS ORDERED: ASPIRIN 81 MG CHEWABLE TABLETS ONE (22:23)
--- NOTE | 2019-09-07 22:28 | PDOC ---
Attending Attestation - Resident Resident Name: Eulogio Grewal - ED Attending Attestation I have performed the following: I have examined & evaluated the patient, The case was reviewed & discussed with the resident, I agree w/resident's findings & plan - HPI HPI: 09/07/19 22:26 see resident hpi - Physicial Exam PE: 09/07/19 22:26 see resident exam - Medical Decision Making 09/07/19 22:26 49-year-old male with burning retrosternal chest pain radiating to the right arm with associated shortness of breath Patient has had a cath in the past which was negative due to elevated troponins Previous EKG similar with increased elevation in lead V1 We will consult with interventional cardiology Nitro sublingual and remainder of aspirin to complete [address] Villalpando from [facility] interventional cardiology team has recommended diltiazem and isosorbide p.o. for likely cardiac vasospasm We will plan for in-house admission pending troponin 09/07/19 22:39 Discharge - Discharge Information Problems reviewed: Yes Clinical Impression/Diagnosis: Chest pain Condition: Fair - Follow up/Referral Referrals: Felicita Rodríguez MD [Primary Care Provider] - - Patient Discharge Instructions - Post Discharge Activity
[2019-09-07 22:32] LABS: HEMATOCRIT 49.7 % (35.4-49); HEMOGLOBIN 16.6 GM/dL (11.7-16.9); MCH 29.6 pg (25.7-33.7); MCHC 33.4 g/dl (32.0-35.9); MEAN CELL VOLUME 88.6 fl (80-96); MEAN PLT VOLUME 8.8 fl (7.5-11.1); PLATELET COUNT 237 K/MM3 (134-434); RBC 5.61 M/mm3 (4.00-5.60); RDW 13.1 % (11.9-15.9); WHITE BLOOD COUNT 11.2 K/mm3 (4.0-10.0)
[2019-09-07 22:49] LABS: INR 0.87 (0.83-1.09); PROTHROMBIN TIME (PATIENT) 10.3 SEC (9.7-13.0)
[2019-09-07] MEDS ORDERED: dilTIAZem HCL 30 MG TABLET ONE (22:50)
[2019-09-07] MEDS ORDERED: ISOSORBIDE MONONITRATE 60 MG TAB.SR.24H (FP) PO ONE (22:53)
--- NOTE | 2019-09-07 22:56 | PDOC ---
History of Present Illness - General Chief Complaint: Chest Pain Stated Complaint: CHEST PAIN Time Seen by Provider: 09/07/19 22:25 History Source: Patient Exam Limitations: No Limitations Past History - Medical History Allergies/Adverse Reactions: Allergies Allergy/AdvReac Type Severity Reaction Status Date / Time No Known Allergies Allergy Verified 09/07/19 22:19 Home Medications: Ambulatory Orders Ascorbic Acid [Vitamin C] 1,000 mg PO DAILY 04/07/18 Aspirin [ASA -] 1 tab PO DAILY 09/05/19 Cholecalciferol (Vitamin D3) [Vitamin D3] 1 cap PO ASDIR 09/05/19 Zinc Sulfate [Orazinc -] 1 cap PO DAILY 09/05/19 Anemia: No Asthma: No Cancer: No Cardiac Disorders: No CVA: No COPD: No CHF: No Dementia: No Diabetes: Yes (after weight loss pt no longer diabetic) GI Disorders: No Disorders: No HTN: Yes Hypercholesterolemia: No Liver Disease: No Seizures: No Thyroid Disease: No - Surgical History Abdominal Surgery: No Appendectomy: No Cardiac Surgery: No Cholecystectomy: Yes Lung Surgery: No Neurologic Surgery: No Orthopedic Surgery: No - Immunization History Immunization Up to Date: Yes - Psycho-Social/Smoking History Smoking Status: Yes Smoking History: Never smoked Have you smoked in the past 12 months: No Number of Cigarettes Smoked Daily: 10 If you are a former smoker, when did you quit?: PT DENIES EVER SMOKING Information on smoking cessation initiated: No 'Breaking Loose' booklet given: 06/13/16 - Substance Abuse Hx (Audit-C & DAST Scrn) How often the patient has a drink containing alcohol: Monthly or less Number of drinks the patient has on a typical day: 3 or 4 How often the patient has six or more drinks on one occasion: Less than monthly Score: In Men: 4 or > Positive; In Women: 3 or > Positive: 3 Screen Result (Pos requires Nsg. Audit-10AR): Negative In the last yr the pt used illegal drug/Rx for NonMed reason: No Score: Yes response is considered Positive: 0 Screen Result (Positive result requires Nsg. DAST-10): Negative *Physical Exam - Vital Signs Last Vital Signs Temp Pulse Resp BP Pulse Ox 97.2 F L 85 20 125/87 98 09/07/19 22:10 09/07/19 22:10 09/07/19 22:10 09/07/19 22:10 09/07/19 22:10 ED Treatment Course - LABORATORY CBC & Chemistry Diagram: 09/07/19 22:25 09/07/19 22:25 - ADDITIONAL ORDERS Additional order review: Laboratory Results 09/07/19 22:25 PT with INR 10.30 INR 0.87 - Medications Given in the ED: ED Medications Discontinued Medications Generic Name Dose Route Start Last Admin Trade Name Livia PRN Reason Stop Dose Admin Aspirin 162 mg 09/07/19 22:18 09/07/19 22:27 Asa - PO 09/07/19 22:19 162 mg ONCE ONE Administration Nitroglycerin 0.4 mg 09/07/19 22:17 09/07/19 22:27 Nitrostat - SL 09/07/19 22:18 0.4 mg ONCE ONE Administration Medical Decision Making - Medical Decision Making 09/07/19 22:[address] Torsten Villalpando, states due to story and after reviewing EKG (sent by text) states it does not meet STEMI criteria and pt is likely having vasospams. Recommends Dilt PO 30 mg Q6 hours daily, Isosorbide Mononitrate 30 mg PO daily along with full dose ASA. States Dr. Roberts will see the patient in the am. Does not recommend anticoagulation 09/07/19 23:15 Pt states he talked to his family who are doctors, state that he can leave and it is likely stress related. Pt wants to leave the ER against medical advise but states "it is not against medical advice" also states "if I sign that form the hospital will not get paid". After Discharge - Discharge Information Problems reviewed: Yes Clinical Impression/Diagnosis: Chest pain Disposition: AGAINST MEDICAL ADVICE - Follow up/Referral Referrals: Felicita Rodríguez MD [Primary Care Provider] - - Patient Discharge Instructions Patient Printed Discharge Instructions: DI for Atypical Chest Pain, DI for Chest Pain Additional Instructions: You are leaving the ER against medical advise. You are aware that leaving the ER at this time can potentially lead to permanent disability and . You can come back any time for continued care and admission or for any new concerns. See the director consumer affairs Dr. Roberts as discussed as soon as possible. Thank you - Post Discharge Activity
[2019-09-07 23:03] LABS: ALBUMIN 3.7 g/dl (3.4-5.0); ALK PHOS 72 U/L (45-117); ANION GAP 9 MMOL/L (8-16); BILIRUBIN,TOTAL 0.4 mg/dL (0.2-1); BLOOD UREA NITROGEN 9.1 mg/dL (7-18); CALCIUM 9.1 mg/dL (8.5-10.1); CHLORIDE 108 mmol/L (98-107); CO2 22 mmol/L (21-32); CREATININE 0.6 mg/dL (0.55-1.3); GLUCOSE,RANDOM 169 mg/dL (74-106); MAGNESIUM 1.8 mg/dL (1.8-2.4); N-TERMINAL BNP 108.9 pg/ml (5-125); POTASSIUM 4.3 mmol/L (3.5-5.1); SGOT/AST 24 U/L (15-37); SGPT/ALT 34 U/L (13-61); SODIUM 140 mmol/L (136-145); TOT PROT 6.6 g/dl (6.4-8.2)
[2019-09-07] MEDS ORDERED: ISOSORBIDE MONONITRATE 30 MG TAB.SR.24H (FP) PO SCH (23:03)
--- NOTE | 2019-09-08 09:27 | PDOC ---
*Physical Exam - Vital Signs Last Vital Signs Temp Pulse Resp BP Pulse Ox 97.2 F L 85 20 125/87 98 09/07/19 22:10 09/07/19 22:10 09/07/19 22:10 09/07/19 22:10 09/07/19 22:10 ED Treatment Course - LABORATORY CBC & Chemistry Diagram: 09/07/19 22:25 09/07/19 22:25 - ADDITIONAL ORDERS Additional order review: Laboratory Results 09/07/19 09/07/19 22:25 22:25 PT with INR 10.30 INR 0.87 Sodium 140 Potassium 4.3 Chloride 108 H Carbon Dioxide 22 Anion Gap 9 BUN 9.1 Creatinine 0.6 Est GFR (CKD-EPI)AfAm 134.92 Est GFR (CKD-EPI)NonAf 116.41 Random Glucose 169 H Calcium 9.1 Magnesium 1.8 Total Bilirubin 0.4 AST 24 ALT 34 Alkaline Phosphatase 72 Creatine Kinase 77 Troponin I < 0.02 B-Natriuretic Peptide 108.9 Total Protein 6.6 Albumin 3.7 09/07/19 22:25 RBC 5.61 H MCV 88.6 MCHC 33.4 RDW 13.1 MPV 8.8 - Medications Given in the ED: ED Medications Discontinued Medications Generic Name Dose Route Start Last Admin Trade Name Freq PRN Reason Stop Dose Admin Aspirin 162 mg 09/07/19 22:18 09/07/19 22:27 Asa - PO 09/07/19 22:19 162 mg ONCE ONE Administration Diltiazem HCl 30 mg 09/07/19 22:42 09/07/19 23:02 Diltiazem Hcl PO 09/07/19 22:43 30 mg ONCE ONE Administration Isosorbide Mononitrate 30 mg 09/07/19 23:03 09/07/19 23:58 Imdur - PO 30 mg DAILY MARGARITA Administration Nitroglycerin 0.4 mg 09/07/19 22:17 09/07/19 22:27 Nitrostat - SL 09/07/19 22:18 0.4 mg ONCE ONE Administration Medical Decision Making - Medical Decision Making Dr. Dickens, radiology, called regarding addendum to radiology report: "A single AP view of the chest is been submitted. Since the prior study of 01/05/2019 but there is slightly more prominence of the soft tissues by the right hilum. There is a normal heart, and unfolded aorta and clear lungs. The angles are sharp and the bones and soft tissues are intact. The chest has a similar appearance to 10/13/2016. Correlation recommended. For more complete evaluation, repeat PA and lateral study or chest CT may be of help. Reported By: Thomas Dickens MD 09/08/1914 " Patient has subsequently been discharged from the ED Called Dr. Rodríguez's office. Spoke with Veronika who will relay the report. Report faxed to the office, 09/08/19 09:23 Discharge - Discharge Information Problems reviewed: Yes Clinical Impression/Diagnosis: Chest pain Disposition: AGAINST MEDICAL ADVICE - Follow up/Referral Referrals: Felicita Rodríguez MD [Primary Care Provider] - - Patient Discharge Instructions Patient Printed Discharge Instructions: DI for Atypical Chest Pain, DI for Chest Pain Additional Instructions: You are leaving the ER against medical advise. You are aware that leaving the ER at this time can potentially lead to permanent disability and . You can come back any time for continued care and admission or for any new concerns. See the artificial intelligence specialist Dr. Roberts as discussed as soon as possible. Thank you - Post Discharge Activity
--- NOTE | 2019-09-08 12:10 | EKG ---
Test Reason : Blood Pressure : / mmHG Vent. Rate : 077 BPM Atrial Rate : 077 BPM P-R Int : 128 ms QRS Dur : 076 ms QT Int : 350 ms P-R-T Axes : 027 -03 008 degrees QTc Int : 396 ms NORMAL SINUS RHYTHM SEPTAL INFARCT , AGE UNDETERMINED ABNORMAL ECG WHEN COMPARED WITH ECG OF 05-JAN-2019 06:45, ST NOW DEPRESSED IN LATERAL LEADS T WAVE AMPLITUDE HAS DECREASED IN ANTEROLATERAL LEADS Confirmed by CORIN YADAV, ENID ([id number]) on 09/08/2019 12:10:06 PM Referred By: Confirmed By:ENID COOMBS MD
[2019-09-08] MEDS ORDERED: ISOSORBIDE MONONITRATE 30 MG TAB.SR.24H (FP) PO ONE (22:45)
== END 2019-09-07 23:59 | disposition left against medical advice (07) ==
LOC: JER 22:06
DX: R07.9 Chest pain, unspecified (principal)
CPT/HCPCS: 36415; 71045-TC-FY; 80053; 82550; 83735; 83880; 84484; 85027; 85610; 93005; 93010; 99285-25

== ENCOUNTER 2021-09-25 16:36 | Emergency (ER) | payer BC ==
[2021-09-25] MEDS ORDERED: NITROGLYCERIN SUBLINGUAL 1/150 0.4 MG TAB ONE (16:45)
[2021-09-25] MEDS ORDERED: NITROGLYCERIN SUBLINGUAL 1/150 0.4 MG TAB SL ONE (16:46)
[2021-09-25 17:02] VITALS: BMI 30.7
[2021-09-25 17:13] LABS: BASO % 1.5 % (0-2.0); EOS % 1.3 % (0-4.5); HEMATOCRIT 50.7 % (35.4-49); HEMOGLOBIN 17.1 GM/dL (11.7-16.9); LYMPH % 21.9 % (8-40); MCHC 33.7 g/dl (32.0-35.9); MEAN CELL VOLUME 83.1 fl (80-96); MEAN PLT VOLUME 8.3 fl (7.5-11.1); MONO % 7.8 % (3.8-10.2); NEUT % 67.5 % (42.8-82.8); PLATELET COUNT 265 10^3/uL (134-434); RBC 6.11 M/mm3 (4.00-5.60); RDW 14.7 % (11.9-15.9); WHITE BLOOD COUNT 9.8 K/mm3 (4.0-10.0)
[2021-09-25 17:20] LABS: INR 0.98 (0.83-1.09); PROTHROMBIN TIME (PATIENT) 11.3 SEC (9.7-13.0)
[2021-09-25 17:32] LABS: BLOOD UREA NITROGEN 12.4 mg/dL (7-18); CALCIUM 9.5 mg/dL (8.5-10.1)
[2021-09-25 17:33] LABS: ALBUMIN 4.6 g/dl (3.4-5.0)
[2021-09-25 17:36] LABS: CREATININE 0.7 mg/dL (0.55-1.3)
[2021-09-25 17:38] LABS: BILIRUBIN,TOTAL 0.4 mg/dL (0.2-1); TOT PROT 7.9 g/dl (6.4-8.2)
[2021-09-25] MEDS ORDERED: ASPIRIN 81 MG CHEWABLE TABLETS PO ONE (17:48)
[2021-09-25] MEDS ORDERED: ACETAMINOPHEN 1000 MG/100 ML BAG IVPB ONE (17:50)
[2021-09-25] MEDS ORDERED: ACETAMINOPHEN INJECTION 100 ML IVPB ONE (18:15)
[2021-09-25] MEDS ORDERED: ASPIRIN 81 MG CHEWABLE TABLETS ONE (18:15)
[2021-09-25 18:37] VITALS: BP 144/75; PULSE 82; RESP 18
== END 2021-09-25 18:39 | disposition left against medical advice (07) ==
LOC: JER 16:36
PROC: 3E033NZ Introduction of Analgesics, Hypnotics, Sedatives into Peripheral Vein, Percutaneous Approach (ICD-10-PCS; principal; 2021-09-25)
DX: R07.89 Other chest pain (principal)
CPT/HCPCS: 36415; 71275-TC; 74174-TC; 80053; 82962; 84484; 85025; 85610; 85730; 93005; 93010; 99285-25; Q9967

== ENCOUNTER 2021-12-20 20:50 | Observation (INO) | payer BC ==
[2021-12-20] MEDS ORDERED: ASPIRIN 81 MG CHEWABLE TABLETS PO ONE (21:10)
[2021-12-20 21:25] LABS: VENOUS BASE EXCESS -0.2 mmol/L (-2-2); VENOUS O2 SATURATION 50.5 % (70-80); VENOUS PH 7.404 (7.310-7.410)
[2021-12-20 21:45] LABS: BASO % 0.6 % (0-2.0); EOS % 0.7 % (0-4.5); HEMATOCRIT 47.4 % (35.4-49); HEMOGLOBIN 16.1 GM/dL (11.7-16.9); LYMPH % 13.9 % (8-40); MCH 27.9 pg (25.7-33.7); MCHC 33.9 g/dl (32.0-35.9); MEAN CELL VOLUME 82.2 fl (80-96); MEAN PLT VOLUME 8.1 fl (7.5-11.1); NEUT % 78.8 % (42.8-82.8); PLATELET COUNT 214 10^3/uL (134-434); RBC 5.76 M/mm3 (4.00-5.60); RDW 14.9 % (11.9-15.9); WHITE BLOOD COUNT 8.9 K/mm3 (4.0-10.0)
[2021-12-20 21:54] LABS: CALCIUM 9.7 mg/dL (8.5-10.1)
[2021-12-20 21:55] LABS: ALBUMIN 4.5 g/dl (3.4-5.0); BLOOD UREA NITROGEN 14.4 mg/dL (7-18)
[2021-12-20 21:58] LABS: CREATININE 0.7 mg/dL (0.55-1.3); INR 1.02 (0.83-1.09); PROTHROMBIN TIME (PATIENT) 11.7 SEC (9.7-13.0)
[2021-12-20 22:01] LABS: BILIRUBIN,TOTAL 0.6 mg/dL (0.2-1); TOT PROT 7.3 g/dl (6.4-8.2)
[2021-12-20 22:07] LABS: ACTIVATED PTT 28.2 SECONDS (25.2-36.5)
[2021-12-20 23:32] VITALS: BMI 29.7
[2021-12-21] MEDS ORDERED: ZOLPIDEM TARTRATE 5 MG TABLET PO PRN (00:32)
[2021-12-21] MEDS ORDERED: NITROGLYCERIN SUBLINGUAL 1/150 0.4 MG TAB SL PRN (00:33)
[2021-12-21] MEDS ORDERED: metFORMIN HCL 500 MG TABLET (FP) PO SCH (07:00)
[2021-12-21 09:14] VITALS: RESP 18
[2021-12-21] MEDS ORDERED: ASPIRIN 325 MG TABLET PO SCH (10:00)
[2021-12-21] MEDS ORDERED: SODIUM BICARBONATE 650 MG TABLET PO SCH (10:00)
[2021-12-21] MEDS ORDERED: CLOPIDOGREL BISULFATE 75 MG TABLET (FP) PO SCH (10:00)
[2021-12-21] MEDS ORDERED: ASPIRIN 325 MG ENTERIC COATED TABLET (FP) PO SCH (10:00)
[2021-12-21] MEDS ORDERED: PANTOPRAZOLE 40 MG TABLET PO SCH (10:00)
[2021-12-21 14:05] VITALS: BP 130/60; PULSE 78; TEMP 97.9
[2021-12-21] MEDS ORDERED: ROSUVASTATIN CA 40 MG TABLET PO SCH (22:00)
== END 2021-12-21 15:46 | disposition home or self-care (01) ==
LOC: JER 20:50 → INTOOBSV 21:27 → UNDOADMOB 21:27 → JERBED 21:27 → J4S 23:08 → JERBED 12-21 10:33 → J4S 12-21 10:33
PROVIDERS: ADMIT Family Medicine; ATTEND Family Medicine
DX: I25.119 Atherosclerotic heart disease of native coronary artery with unspecified angina pectoris (principal); I11.9 Hypertensive heart disease without heart failure; E11.9 Type 2 diabetes mellitus without complications; Z87.891 Personal history of nicotine dependence
CPT/HCPCS: 0241U-QW; 36415; 71045-TC-FY; 80053; 82550; 82803; 82962; 84484; 85025; 85379; 85610; 85730; 86850; 86900; 86901; 93005; 93010; 99285-25; G0378

== ENCOUNTER 2022-03-12 10:05 | Emergency (ER) | payer BC ==
[2022-03-12 10:30] VITALS: TEMP 98; BMI 28.4
[2022-03-12] MEDS ORDERED: SODIUM CHLORIDE 0.9% 1000 ML INFUS.BAG IV ONE (10:32)
[2022-03-12 11:39] LABS: BASO % 0.6 % (0-2.0); EOS % 1.3 % (0-4.5); HEMATOCRIT 45.2 % (35.4-49); HEMOGLOBIN 14.8 GM/dL (11.7-16.9); LYMPH % 20.6 % (8-40); MCH 27.9 pg (25.7-33.7); MCHC 32.8 g/dl (32.0-35.9); MEAN PLT VOLUME 8.1 fl (7.5-11.1); MONO % 6.2 % (3.8-10.2); NEUT % 71.3 % (42.8-82.8); PLATELET COUNT 184 10^3/uL (134-434); RBC 5.31 M/mm3 (4.00-5.60); RDW 13.4 % (11.9-15.9); WHITE BLOOD COUNT 6.7 K/mm3 (4.0-10.0)
[2022-03-12 11:46] LABS: INR 1.09 (0.83-1.09); PROTHROMBIN TIME (PATIENT) 12.5 SEC (9.7-13.0)
[2022-03-12 11:49] LABS: ACTIVATED PTT 29.8 SECONDS (25.2-36.5)
[2022-03-12 12:05] LABS: CALCIUM 8.1 mg/dL (8.5-10.1)
[2022-03-12 12:06] LABS: ALBUMIN 3.6 g/dl (3.4-5.0)
[2022-03-12 12:08] LABS: CREATININE 0.6 mg/dL (0.55-1.3)
[2022-03-12 12:10] LABS: BILIRUBIN,TOTAL 0.5 mg/dL (0.2-1)
[2022-03-12 15:24] VITALS: BP 136/77; PULSE 71; RESP 20
== END 2022-03-12 15:25 | disposition home or self-care (01) ==
LOC: JER 10:05
DX: R42 Dizziness and giddiness (principal); T42.4X5A Adverse effect of benzodiazepines, initial encounter
CPT/HCPCS: 36415; 80053; 84484; 85025; 85610; 85730; 93005; 93010; 99284-25

== ENCOUNTER 2023-09-18 05:01 | Day surgery (SDC) | payer BC ==
[2023-09-17 16:13] VITALS: BMI 29.2
[2023-09-18 12:47] VITALS: BP 125/74; PULSE 88; RESP 19; TEMP 98
== END 2023-09-18 12:47 | disposition home or self-care (01) ==
LOC: JASU-ENDO 05:01
PROVIDERS: ATTEND Internal Medicine Gastroenterology
PROC: 0DB68ZX Excision of Stomach, Via Natural or Artificial Opening Endoscopic, Diagnostic (ICD-10-PCS; 2023-09-18)
PROC: 0DB28ZX Excision of Middle Esophagus, Via Natural or Artificial Opening Endoscopic, Diagnostic (ICD-10-PCS; 2023-09-18)
PROC: 0DB48ZX Excision of Esophagogastric Junction, Via Natural or Artificial Opening Endoscopic, Diagnostic (ICD-10-PCS; principal; 2023-09-18 12:30)
DX: K20.90 Esophagitis, unspecified without bleeding (principal); K29.50 Unspecified chronic gastritis without bleeding
CPT/HCPCS: 82962; 88305-TC; 88312-TC; 88342-TC

== ENCOUNTER 2024-12-08 17:17 | Observation (INO) | payer BC ==
[2024-12-08 17:52] VITALS: BMI 27.5
[2024-12-08] MEDS ORDERED: ACETAMINOPHEN INJECTION 100 ML ONE (17:55)
[2024-12-08] MEDS ORDERED: FAMOTIDINE 20 MG/50 ML IVPB 20 MG/50 ML MG IVPB ONE (17:55)
[2024-12-08] MEDS ORDERED: MAG HYDROX/AL HYDROX/SIMETH 30 ML UNIT-DOSE CUP ONE (17:55)
[2024-12-08 18:05] LABS: ABSOLUTE IMMATURE GRANULOCYTES 0.02 x10^3/uL (0.0-0.031); BASOPHILS # 0.04 x10^3/uL (0.01-0.08); EOSINOPHIL % 1.7 % (0.8-7.0); EOSINOPHILS # 0.12 x10^3/uL (0.04-0.54); MCHC 32.0 g/dl (32.3-36.5); MEAN CELL VOLUME 81.2 fl (79.0-92.2); MEAN PLT VOLUME 10.0 fl (9.4-12.4); MONOCYTE # 0.55 x10^3/uL (0.30-0.82); MONOCYTE % 8.0 % (5.3-12.2); RDW 13.4 % (12.2-16.1)
[2024-12-08] MEDS: ACETAMINOPHEN 1000 MG/100 ML BAG IVPB ONE (18:07)
[2024-12-08] MEDS: FAMOTIDINE 20 MG/50 ML IVPB 20 MG/50 ML MG IVPB ONE (18:07)
[2024-12-08] MEDS: MAG HYDROX/AL HYDROX/SIMETH 30 ML UNIT-DOSE CUP PO ONE (18:07)
[2024-12-08 18:17] LABS: GLUCOSE,RANDOM 174.0 mg/dL (74-106)
[2024-12-08 18:18] LABS: CO2 22.0 mmol/L (21-32); TOT PROT 7.2 g/dl (6.4-8.2)
[2024-12-08 18:20] LABS: ALK PHOS 64.0 U/L (40-150)
[2024-12-08 18:23] LABS: CREATININE 0.59 mg/dL (0.55-1.3); SGOT/AST 28.0 U/L (5-34); SGPT/ALT 26.0 U/L (0-55)
[2024-12-08] MEDS ORDERED: ASPIRIN 81 MG CHEWABLE TABLETS ONE (21:04)
[2024-12-08] MEDS: ASPIRIN 81 MG CHEWABLE TABLETS PO ONE (21:13)
[2024-12-08] MEDS ORDERED: guaiFENesin/D-METHORPHAN HB 10 ML UNIT-DOSE CUPS PO PRN (21:59)
[2024-12-08] MEDS ORDERED: MELATONIN 5 MG TABLETS PO PRN (22:00)
[2024-12-08] MEDS ORDERED: INSULIN ASPART SLIDING SCALE (NOVOLOG) 1 VIAL SQ SCH (22:00)
[2024-12-08] MEDS: METOPROLOL TARTRATE 50 MG TABLET (FP) PO SCH (22:31)
[2024-12-08] MEDS: metFORMIN HCL 500 MG TABLET (FP) PO SCH (22:31)
[2024-12-09] MEDS: ENOXAPARIN NA (PORCINE) 100 MG/1 ML DISP.SYRIN SQ SCH (01:45)
[2024-12-09] MEDS ORDERED: metFORMIN HCL 500 MG TABLET (FP) PO SCH (07:00)
[2024-12-09 08:08] LABS: ABSOLUTE IMMATURE GRANULOCYTES 0.04 x10^3/uL (0.0-0.031); BASOPHILS # 0.06 x10^3/uL (0.01-0.08); EOSINOPHIL % 1.2 % (0.8-7.0); EOSINOPHILS # 0.11 x10^3/uL (0.04-0.54); MCHC 31.9 g/dl (32.3-36.5); MEAN CELL VOLUME 80.5 fl (79.0-92.2); MEAN PLT VOLUME 10.4 fl (9.4-12.4); MONOCYTE # 0.56 x10^3/uL (0.30-0.82); MONOCYTE % 6.1 % (5.3-12.2); RDW 13.3 % (12.2-16.1)
[2024-12-09 08:41] LABS: GLUCOSE,RANDOM 169.0 mg/dL (74-106); TOT PROT 7.0 g/dl (6.4-8.2)
[2024-12-09 08:42] LABS: CO2 23.0 mmol/L (21-32); LDL CHOLESTEROL (ONLY SJRH) 141 mg/dL (5-100)
[2024-12-09 08:44] LABS: ALK PHOS 67.0 U/L (40-150)
[2024-12-09 08:46] LABS: SGOT/AST 37.0 U/L (5-34); SGPT/ALT 25.0 U/L (0-55)
[2024-12-09 08:47] LABS: CREATININE 0.58 mg/dL (0.55-1.3)
[2024-12-09] MEDS: CLOPIDOGREL BISULFATE 75 MG TABLET (FP) PO SCH (09:30)
[2024-12-09] MEDS: ASPIRIN 81 MG CHEWABLE TABLETS PO SCH (09:30)
[2024-12-09] MEDS ORDERED: ENOXAPARIN NA (PORCINE) 40 MG/0.4 ML DISP.SYRIN SQ SCH (10:00)
[2024-12-09 12:10] VITALS: BP 130/85; PULSE 101; RESP 18; TEMP 97.7
[2024-12-09] MEDS ORDERED: ROSUVASTATIN CA 20 MG TABLET PO SCH (22:00)
== END 2024-12-09 11:00 | disposition short-term general hospital (02) ==
LOC: JER 17:17 → JERBED 20:46 → J4S 21:16
PROVIDERS: ADMIT Family Medicine; ATTEND Family Medicine
PROC: 3E033NZ Introduction of Analgesics, Hypnotics, Sedatives into Peripheral Vein, Percutaneous Approach (ICD-10-PCS; principal; 2024-12-08)
PROC: 3E023GC Introduction of Other Therapeutic Substance into Muscle, Percutaneous Approach (ICD-10-PCS; 2024-12-08)
PROC: 3E033GC Introduction of Other Therapeutic Substance into Peripheral Vein, Percutaneous Approach (ICD-10-PCS; 2024-12-08)
DX: I21.4 Non-ST elevation (NSTEMI) myocardial infarction (principal); R07.9 Chest pain, unspecified; I25.10 Atherosclerotic heart disease of native coronary artery without angina pectoris; I11.9 Hypertensive heart disease without heart failure; E78.5 Hyperlipidemia, unspecified; E11.9 Type 2 diabetes mellitus without complications; F17.290 Nicotine dependence, other tobacco product, uncomplicated; Z95.1 Presence of aortocoronary bypass graft; Z90.49 Acquired absence of other specified parts of digestive tract
CPT/HCPCS: 36415; 71045-TC-FY; 80053; 80061; 82962; 83036; 83690; 83735; 84100; 84443; 84484; 85025; 93005; 93010; 93306-TC; 96365; 96372; 96375; 99285-25; G0378